=== PATIENT | female | born 1945 | race Caucasian/White ===

== ENCOUNTER → 2020-06-22 09:28 | Outpatient (BNVA) | payer MEDICARE, SELFPAY | PROVIDERS: PCP Internal Medicine; Visit Provider Internal Medicine | DX: I48.0 Paroxysmal atrial fibrillation (principal); I10 Essential (primary) hypertension; Z79.01 Long term (current) use of anticoagulants | CPT/HCPCS: 93005; 99212 ==

== ENCOUNTER → 2020-12-08 12:49 | Outpatient (BNVA) | payer MEDICARE, SELFPAY | PROVIDERS: PCP Internal Medicine; Visit Provider Internal Medicine | DX: I22.0 Subsequent ST elevation (STEMI) myocardial infarction of anterior wall (principal); I25.5 Ischemic cardiomyopathy; I48.0 Paroxysmal atrial fibrillation; I10 Essential (primary) hypertension; R19.7 Diarrhea, unspecified | CPT/HCPCS: 99212 ==

== ENCOUNTER → 2021-01-27 09:12 | Outpatient (REF) | payer MEDICARE, SELFPAY ==
--- NOTE | 2021-01-27 09:17 | CA_ITS ---
Transthoracic Echocardiogram Patient (Last, First, Middle): Cathryn Pa A Gender: Female Date of : 1945 Age: 75 Procedure Date: 01/27/2021 Procedure Type: Transthoracic Echocardiogram Location: OP Height: 167.64 cm Weight: 72.58 kg BSA: 1.82 m2 Heart Rate: bpm BP: 134 / 86 mmHg Insulation Cupola Operator: HENRY Referring MD: Petar Manley MD Cracker Sprayer: Jude Garcia MD Symptoms: I22.0 - Subsequent ST elevation (STEMI) myocardial infarc... Study Quality: Fair ECG Rhythm: Sinus Conclusions: - 1. Normal LV systolic function with pseudonormal filling pattern 2. Mild mitral and tricuspid regurgitation 3. Mildly to moderately elevated right ventricular systolic pressure 4. Small circumferential pericardial effusion Findings Left Ventricle Normal left ventricular size and systolic function. There is mildly increased left ventricular wall thickness. The visually estimated ejection fraction is between 55-60%. Spectral Doppler is indicative of a pseudonormal filling pattern. E/E prime ratio is between 8 and 15 consistent with indeterminate filling pressures. Right Ventricle Normal right ventricular cavity size and systolic function. Atria The left atrium is normal in size. There is no evidence of interatrial shunt. The right atrium is normal in size. Aortic Valve Normal aortic valve structure and function. There is no aortic valve stenosis. There is no aortic valve regurgitation. Mitral Valve Normal mitral valve structure and function. There is mild mitral valve regurgitation. There is no mitral valve stenosis. Pulmonic Valve The pulmonic valve is likely normal. Tricuspid Valve Likely normal tricuspid valve structure and function. There is mild tricuspid valve regurgitation. Mildly elevated right atrial pressure. Mild to moderate pulmonary hypertension is present. Great Vessels All visible segments of the aorta are normal in size. The pulmonary artery was not well visualized. Venous The inferior vena cava is normal in size and collapses less than 50% with inspiration. Pericardium/Pleural There is a small circumferential pericardial effusion. There are no definitive echocardiographic findings of tamponade physiology. Measurements 2D Linear Measurements IVSd: 1.27 0.6-0.9/0.6-1.0 cm LVIDd: 4.55 3.9-5.3/4.2-5.9 cm LVIDd Index: 2.50 2.4-3.2/2.2-3.1 cm/m2 LVIDs: 2.89 2.0-3.6 cm LVPWd: 1.19 0.7-1.1 cm Ao Root: 2.80 2.1-3.5 cm LA Diam: 3.30 2.7-3.8/3.0-4.0 cm LAIDs Index: 1.81 1.5-2.3 cm/m2 LV Mass: 260.29 67-162/88-224 g LV Mass Index: 143.01 43-95/49-115 g/m2 LVOT Diam: 2.00 3.0+(-)1.3 cm 2D Systolic Function EF 4C: 68.50 >55% Mitral Valve MV Pk E: 0.67 MV PK A: 0.67 MV Decel Time: 191.00 E/A: 1.00 E'Lateral: 5.87 E'Medial: 5.33 E/E' Med: 12.50 E/E' Lat: 11.40 PHT: 56.00 MVA PHT: 3.93 Decel [place]: 3.49 Aortic Valve AoV Pk Patrice: 1.36 AoV Pk Grad: 7.00 LVOT LVOT Pk Patrice: 1.06 LVOT Mn Patrice: 0.65 LVOT VTI: 0.22 LVOT Pk Grad: 4.00 LVOT Mn Grad: 2.00 LVOT Diam: 2.00 LVOT Area: 3.14 Diastolic Function MV Pk E: 0.67 MV Pk A: 0.67 E/A: 1.00 E'Medial: 5.33 E/E' Med: 12.50 E' Laterial: 5.87 E/E' Lat: 11.40 Right Ventricle TAPSE (mm): 2.57 Tricuspid Valve TR Pk Patrice: 3.09 TR Pk Grad: 38.00 RA Press: 8.00 RVSP: 46.00 Great Vessels Aorta Ao Root-2D: 2.80 2.0-3.7 cm Ao Asc: 3.00 2.1-3.4 cm Updated in Other Vendor System with Status of Final Jude Garcia MD electronically signed on 01/28/2021 11:22:22 AM with status of Final
== END ==
LOC: HO.CARD 09:12
PROVIDERS: Visit Provider Internal Medicine
DX: I22.0 Subsequent ST elevation (STEMI) myocardial infarction of anterior wall (principal)
CPT/HCPCS: 93306

== ENCOUNTER → 2021-02-01 12:48 | Outpatient (BNVA) | payer MEDICARE, SELFPAY | PROVIDERS: PCP Physician Assistant Medical; Referring Provider Physician Assistant Medical; Visit Provider Internal Medicine | DX: I22.0 Subsequent ST elevation (STEMI) myocardial infarction of anterior wall (principal); I25.5 Ischemic cardiomyopathy; I48.0 Paroxysmal atrial fibrillation; I10 Essential (primary) hypertension; Z79.01 Long term (current) use of anticoagulants; Z79.02 Long term (current) use of antithrombotics/antiplatelets; Z79.899 Other long term (current) drug therapy | CPT/HCPCS: 99212 ==

== ENCOUNTER → 2021-05-02 10:22 | Outpatient (BNVA) | payer MEDICARE, SELFPAY | PROVIDERS: PCP Physician Assistant Medical; Referring Provider Physician Assistant Medical; Visit Provider Internal Medicine | DX: I22.0 Subsequent ST elevation (STEMI) myocardial infarction of anterior wall (principal); I25.5 Ischemic cardiomyopathy; I48.0 Paroxysmal atrial fibrillation; I10 Essential (primary) hypertension; Z95.5 Presence of coronary angioplasty implant and graft; Z98.890 Other specified postprocedural states; Z79.01 Long term (current) use of anticoagulants | CPT/HCPCS: 99212 ==

== ENCOUNTER 2021-05-09 08:19 | Outpatient (REF) | payer MEDICARE, SELFPAY ==
[2021-05-09 12:07] LABS: Alanine Aminotransferase 43 U/L (0-31); Albumin Level 4.2 g/dL (3.5-5.0); Alkaline Phosphatase 60 U/L (39-117); Anion Gap 13 (12-20); Aspartate Amino Transferase 41 U/L (5-31); Bilirubin Direct 0.5 mg/dL (0.0-0.5); Bilirubin Total 1.2 mg/dL (0.0-1.0); Blood Urea Nitrogen 15 mg/dL (9-16); Calcium 9.5 mg/dL (8.4-10.2); Carbon Dioxide 25 mmol/L (22-29); Chloride 109 mmol/L (96-108); Cholesterol 125 mg/dL; Estimated Glomerular Filt Rate > 60; Glucose Random 113 mg/dL (60-115); HDL Cholesterol 49 mg/dL; LDL Cholesterol Calculated 53 mg/dl; Potassium 3.9 mmol/L (3.3-5.1); Sodium 143 mmol/L (135-145); Total Protein 6.4 g/dL (6.5-8.0); Triglycerides 118 mg/dL
== END 2021-05-09 08:20 | disposition home or self-care (01) ==
LOC: HO.HMGCLDS 08:19
PROVIDERS: PCP Physician Assistant Medical; Visit Provider Internal Medicine
DX: I22.0 Subsequent ST elevation (STEMI) myocardial infarction of anterior wall (principal); I25.10 Atherosclerotic heart disease of native coronary artery without angina pectoris; I25.5 Ischemic cardiomyopathy; E78.5 Hyperlipidemia, unspecified
CPT/HCPCS: 36415; 80048; 80061; 80076

== ENCOUNTER 2021-08-02 10:54 | Emergency (ER) | payer MEDICARE, SELFPAY ==
--- NOTE | ~2021-08-02 | US_ITS ---
EXAMINATION: US VENOUS ULTRASOUND WITH DOPPLER LOWER EXTREMITY, LEFT CLINICAL INFORMATION: Left leg swelling COMPARISON: None TECHNIQUE: Ultrasound of the deep veins is performed from the hip to the calf with compression sonography and color and pulse Doppler assessment. Spectral analysis with color-flow imaging is performed. FINDINGS: There is normal venous compression and respiratory variation and augmented flow. The visualized common femoral vein, superficial femoral vein, profunda femoral vein, popliteal vein, and the trifurcation region shows no evidence of deep venous thrombosis. There is no significant popliteal fossa cyst. No popliteal artery aneurysm. US/US venous duplex LE LT IMPRESSION: No acute DVT demonstrated in the left lower extremity.
--- NOTE | ~2021-08-02 | XR_ITS ---
EXAMINATION: XR CHEST CLINICAL INFORMATION: Shortness of breath COMPARISON: February 23, 2007 TECHNIQUE: AP portable view of the chest was obtained. FINDINGS: No significant abnormality is noted involving the heart, lungs, mediastinum, bony thorax or soft tissues. There is scoliosis of the upper thoracic spine convex left and lower thoracic spine convex right. XR/XR chest 1V IMPRESSION: No acute disease.
[2021-08-02 11:24] VITALS: BP 140/77; PULSE 65; RESP 18; TEMP 36.6; O2SAT 98; BMI 25.4
--- NOTE | 2021-08-02 12:19 | ED_ITS ---
HPI - General Adult General Chief complaint: General Medical Stated complaint: chf quest dvt l leg Time Seen by Provider: 08/02/21 11:59 Source: patient Limitations: no limitations History of Present Illness HPI narrative: This is a 75-year-old female who last month and had a aneurysmal brain hemorrhage. Patient has been doing well with recovery and saw her neurosurgeon yesterday. Patient has noted recent left leg swelling and her neurosurgeon wanted her to get an ultrasound done to rule out a blood clot. Patient reports pain to her left anterior knee. She denies any chest pain. She does feel short of breath with exertion. She is not sure if she is on a blood thinner anymore. She does have a history of ischemic cardiomyopathy and paroxysmal atrial fibrillation, as well as hypertension. She denies any cough or fever. Related Data Home Medications Medication Instructions Recorded Confirmed multivitamin 1 tab PO DAILY 06/22/20 05/02/21 clopidogrel 75 mg tablet 75 mg PO DAILY 12/08/20 05/02/21 lorazepam 1 mg tablet 1 mg PO DAILY PRN 12/08/20 05/02/21 Previous Rx's Medication Instructions Recorded atorvastatin 80 mg tablet 80 mg PO DAILY 90 Days #90 tab 02/01/21 losartan 50 mg tablet 100 mg PO DAILY 90 Days #180 tab 02/01/21 metoprolol succinate 25 mg 25 mg PO BEDTIME 90 Days #90 tab 02/01/21 tablet,extended release 24 hr amlodipine 5 mg tablet (Norvasc) 5 mg PO DAILY 90 Days #90 tab 02/15/21 rivaroxaban 20 mg tablet (Xarelto) 20 mg PO DAILY #90 tab 04/10/21 Allergies Allergy/AdvReac Type Severity Reaction Status Date / Time lisinopril [From AdvReac Intermediate COUGH Verified 08/02/21 11:30 ZESTRIL] Review of Systems Verdana 4l Constitutional: Verdana 4d Constitutional: Verdana 4d Verdana 4d Reports as per HPI and Denies fever(s) Verdana 4l Eyes: Verdana 4d Verdana 4d Eyes: Verdana 4d Reports no additional eye complaints Verdana 4l ENT: Verdana 4d Reports system reviewed and no additional complaints, except as documented Verdana 4l Cardiovascular: Verdana 4d Cardiovascular: Verdana 4d Verdana 4d Denies chest pain and Reports dyspnea Verdana 4l Respiratory: Verdana 4d Verdana 4d Respiratory: Verdana 4d Reports dyspnea Verdana 4l Gastrointestinal: Verdana 4d Gastrointestinal: Verdana 4d Verdana 4d Reports no additional gastrointestinal complaints Verdana 4l Musculoskeletal: Verdana 4d Comments: Verdana 4d Verdana 4d Verdana 4d Left leg swelling Verdana 4d Verdana 4l Integumentary/Breasts: Verdana 4d Skin/Breast: Verdana 4d Verdana 4d Reports system reviewed and no additional complaints, except as docu Verdana 4l Neurologic: Verdana 4d Reports system reviewed and no additional complaints, except as documented and Denies Sensory deficit (Neuro) [facility] Past Medical History Medical History (Updated 08/02/21 @ 14:03 by Bert Rg MD) 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 Essential hypertension Heart attack intermediate (current) use of anticoagulants PAF (paroxysmal atrial fibrillation) Surgical History (Updated 08/02/21 @ 11:30 by Nai Erwin) H/O heart artery stent History of cardiac catheterization (~11/29/20) History of total left knee replacement (~2018) Family History Family History Father Myocardial infarction Mother HTN (hypertension) Social History Social History Alcohol intake: never Patient Tobacco Use Status: Never used Tobacco Smoked in Last 30 Days: No Use of substances other than those prescribed or required for medical reasons: No Advance Directives: No Advance Directives Information Provided: No Physical Exam Verdana 4l Vital Signs: Verdana 4d Verdana 4d Vital Signs: Verdana 4d Verdana 4Bd Last Vital Signs Verdana 4d Seo Consultant New 4d Seo Consultant New 4d Temp 97.7 F 08/02/21 13:00 Seo Consultant New 4d Pulse 64 08/02/21 13:00 Seo Consultant New 4d Resp 15 08/02/21 13:00 BP 137/70 08/02/21 13:00 Pulse Ox 99 08/02/21 13:00 BMI result Body Mass Index 25.4 Const: General: cooperative, no acute distress and alert Orientation/consciousness: patient oriented x3 HENMT: Head: Yes normal to inspection Eyes: General: appearance normal, both eyes and all related structures Eyelids: Yes eyelids normal Conjunctivae: conjunctivae normal Pupils: Equal, round and reactive pupils present Neck: Neck: Yes normal visual inspection and Yes supple Chest: Chest palpation & inspection: normal inspection of the chest Resp: Effort & Inspection: normal respiratory effort Auscultation: clear to auscultation bilaterally Cardio: Rate: regular rate Rhythm: regular rhythm Heart sounds: S1 normal heart sound present, S2 normal heart sound present, no gallops, no murmurs and no rubs GI: Palpation (GI): Soft to palpation, nontender and Other GI palpation findings present (Non-distended) Auscultation: normal bowel sounds Skin: General skin exam: no rashes or lesions noted Neuro: General: patient oriented x3, no focal motor deficits and CN's II-XI intact bilaterally Cranial nerves: Yes Equal, round and reactive pupils present Cognition (Neuro): normal cognition Motor exam (neuro): 5/5 motor strength present throughout Sensory Exam: No Sensory deficit (Neuro) Extrem: Other: No left calf swelling compared to right, no fullness that to the popliteal fossa, no cords palpable in the posterior leg or medial thigh, no redness or tenderness. No joint effusion of the left knee. No pitting edema to either of the legs. Calves appear equal in size. General: Yes normal to inspection and Yes no pedal edema Psych: Appearance: grossly normal Affect: normal affect Medical Decision Making MDM Narrative Medical decision making narrative: Patient with complaint of pain in her left knee radiate up to her left groin at times. Patient was sent in for evaluation to rule out DVT. Clinically I had little suspicion for DVT because there was no asymmetry to the calf, no calf fullness or tenderness, no popliteal fullness or tenderness, no medial thigh cords or tenderness. There is no pitting edema on either leg or foot. The patient later revealed that her physician had water also have a chest x-ray and BNP. Chest x-ray was done despite the fact that the patient has clear lungs and a pulse oximetry of 99% no peripheral edema. This was negative. BNP will not be contributory given the overall clinical picture. Patient reports no increasing shortness of breath with lying down flat and in fact was reclining nearly flat during her whole ED stay. Imaging Data Left leg venous ultrasound: Radiologist's impression: MPRESSION: No acute DVT demonstrated in the left lower extremity. Chest x-ray: Radiologist's impression: FINDINGS: No significant abnormality is noted involving the heart, lungs, mediastinum, bony thorax or soft tissues. There is scoliosis of the upper thoracic spine convex left and lower thoracic spine convex right. XR/XR chest 1V IMPRESSION: No acute disease. Discharge Plan Discharge Clinical Impression: Pain in left leg Patient Disposition: Home, Self-Care Instructions: Leg Pain (ED) Additional Instructions: Continue current medications. Use acetaminophen (Tylenol) for pain. Your ultra sound was negative for evidence of a blood clot, and clinically I did not suspect the you had a blood clot based upon her exam. You had no pitting peripheral edema and her lungs are clear, your oxygen saturation was 99% on room air which is perfect, and her chest x-ray showed no concerning findings. I do not believe you have congestive heart failure, BNP blood test would not guide changer. Follow up with your primary care physician Prescriptions: No Action amlodipine [Norvasc] 5 mg tablet 5 mg PO DAILY 90 Days Qty: 90 3RF Xarelto 20 mg tablet 20 mg PO DAILY Qty: 90 3RF multivitamin Tablet 1 tab PO DAILY 0RF clopidogrel 75 mg tablet 75 mg PO DAILY 0RF lorazepam 1 mg tablet 1 mg PO DAILY PRN0RF metoprolol succinate 25 mg tablet extended release 24 hr 25 mg PO BEDTIME 90 Days Qty: 90 3RF atorvastatin 80 mg tablet 80 mg PO DAILY 90 Days Qty: 90 3RF losartan 50 mg tablet 100 mg PO DAILY 90 Days Qty: 180 4RF
[2021-08-02 13:00] VITALS: BP 137/70; PULSE 64; RESP 15; TEMP 36.5; O2SAT 99
== END 2021-08-02 14:45 | disposition home or self-care (01) ==
PROVIDERS: Emergency Provider Emergency Medicine; PCP Physician Assistant Medical
DX: M79.605 Pain in left leg (principal); R06.02 Shortness of breath; I10 Essential (primary) hypertension; I48.0 Paroxysmal atrial fibrillation; Z79.01 Long term (current) use of anticoagulants; Z79.02 Long term (current) use of antithrombotics/antiplatelets
CPT/HCPCS: 71045; 93971; 99284

== ENCOUNTER → 2021-08-08 14:48 | Outpatient (BNVA) | payer MEDICARE, SELFPAY | PROVIDERS: PCP Physician Assistant Medical; Referring Provider Physician Assistant Medical; Visit Provider Internal Medicine | DX: I48.0 Paroxysmal atrial fibrillation (principal); I62.00 Nontraumatic subdural hemorrhage, unspecified; I25.5 Ischemic cardiomyopathy; I10 Essential (primary) hypertension; I25.2 Old myocardial infarction; Z79.02 Long term (current) use of antithrombotics/antiplatelets; Z79.899 Other long term (current) drug therapy | CPT/HCPCS: 93005; 99212 ==

== ENCOUNTER → 2021-08-09 09:21 | Outpatient (REF) | payer MEDICARE, SELFPAY ==
--- NOTE | 2021-08-09 09:38 | CA_ITS ---
Transthoracic Echocardiogram Patient (Last, First, Middle): Cathryn Pa A Gender: Female Date of : 1945 Age: 75 Procedure Date: 08/09/2021 Procedure Type: Transthoracic Echocardiogram Location: OP Height: 165.1 cm Weight: 69.4 kg BSA: 1.77 m2 Heart Rate: bpm BP: 122 / 68 mmHg Director Of Group Counseling Program: Referring MD: Petar Manley MD Symptoms: I25.5 - Ischemic cardiomyopathy Study Quality: Fair ECG Rhythm: Sinus Conclusions: - The left ventricular systolic function is normal. The calculated ejection fraction is 67% by biplane method. - No obvious valvular pathology seen on this study. Findings Left Ventricle Normal left ventricular cavity size. There is normal left ventricular wall thickness. The left ventricular systolic function is normal. The calculated ejection fraction is 67% by biplane method. There is no evidence of regional wall motion abnormalities. E/E prime ratio is <8, consistent with normal filling pressures. Evidence suggests grade I (mild) diastolic dysfunction. Right Ventricle Normal right ventricular cavity size and systolic function. Atria Both atria are normal in size. Aortic Valve There is a normal trileaflet aortic valve. There is no aortic valve stenosis. There is no aortic valve regurgitation. Mitral Valve The mitral valve appears normal. There is trace mitral valve regurgitation. There is no mitral valve stenosis. Pulmonic Valve The pulmonic valve was not well visualized. Tricuspid Valve Normal tricuspid valve structure. There is mild tricuspid valve regurgitation. The pulmonary artery systolic pressure is normal. Great Vessels The aortic annulus, sinuses of valsalva, and asc aorta are normal in size. Venous The inferior vena cava is normal in size and collapses greater than 50% with inspiration. Pericardium/Pleural There is a trivial pericardial effusion. Prior Study Comparison Changes noted compared to prior study dated: 01/27/2021. Improved RVSP. Recommendations, Care & Conclusions No obvious valvular pathology seen on this study. Measurements 2D Linear Measurements IVSd: 0.83 0.6-0.9/0.6-1.0 cm LVIDd: 5.13 3.9-5.3/4.2-5.9 cm LVIDd Index: 2.90 2.4-3.2/2.2-3.1 cm/m2 LVIDs: 2.74 2.0-3.6 cm LVPWd: 0.85 0.7-1.1 cm Ao Root: 3.10 2.1-3.5 cm LA Diam: 2.90 2.7-3.8/3.0-4.0 cm LAIDs Index: 1.64 1.5-2.3 cm/m2 LV Mass: 187.18 67-162/88-224 g LV Mass Index: 105.75 43-95/49-115 g/m2 LVOT Diam: 1.90 3.0+(-)1.3 cm 2D Systolic Function EF 4C: 68.00 >55% EF 2C: 66.80 >55% EF BiP: 66.70 >55% Mitral Valve MV Pk E: 0.50 MV PK A: 0.88 MV Decel Time: 425.00 E/A: 0.60 E'Lateral: 8.16 E'Medial: 5.11 E/E' Med: 9.70 E/E' Lat: 6.10 PHT: 124.00 MVA PHT: 1.77 Decel [place]: 1.17 Aortic Valve AoV Pk Patrice: 1.45 AoV Mn Patrice: 0.98 AoV VTI: 0.37 AoV Pk Grad: 8.00 Aov Mn Grad: 4.00 SHANA Cont.VTI: 1.74 LVOT LVOT Pk Patrice: 0.96 LVOT Mn Patrice: 0.60 LVOT VTI: 0.23 LVOT Pk Grad: 4.00 LVOT Mn Grad: 2.00 LVOT Diam: 1.90 LVOT Area: 2.84 Diastolic Function MV Pk E: 0.50 MV Pk A: 0.88 E/A: 0.60 E'Medial: 5.11 E/E' Med: 9.70 E' Laterial: 8.16 E/E' Lat: 6.10 Right Ventricle TAPSE (mm): 22.00 Tricuspid Valve TR Pk Patrice: 2.24 TR Pk Grad: 20.00 Great Vessels Aorta Ao Root-2D: 3.10 2.0-3.7 cm Ao Asc: 3.00 2.1-3.4 cm Pulmonary Valve PV Pk Patrice: 1.11 Peak PV Grad: 5.00 Updated in Other Vendor System with Status of Final Petar Manley MD electronically signed on 08/11/2021 12:40:13 PM with status of Final
== END ==
LOC: HO.CARD 09:21
PROVIDERS: Visit Provider Internal Medicine
DX: I25.5 Ischemic cardiomyopathy (principal)
CPT/HCPCS: 93306

== ENCOUNTER 2021-08-22 08:04 | Outpatient (REF) | payer MEDICARE, SELFPAY ==
[2021-08-22 11:57] LABS: Alanine Aminotransferase 28 U/L (0-31); Alkaline Phosphatase 64 U/L (39-117); Aspartate Amino Transferase 27 U/L (5-31); Bilirubin Direct 0.3 mg/dL (0.0-0.5); Bilirubin Total 0.7 mg/dL (0.0-1.0); Total Protein 6.9 g/dL (6.5-8.0)
== END 2021-08-22 08:05 | disposition home or self-care (01) ==
LOC: HO.HMGCLDS 08:04
PROVIDERS: PCP Internal Medicine; Visit Provider Internal Medicine
DX: I22.0 Subsequent ST elevation (STEMI) myocardial infarction of anterior wall (principal)
CPT/HCPCS: 36415; 80076

== ENCOUNTER → 2021-08-29 13:39 | Outpatient (BNVA) | payer MEDICARE, SELFPAY | PROVIDERS: PCP Internal Medicine; Referring Provider Internal Medicine; Visit Provider Internal Medicine | DX: I48.0 Paroxysmal atrial fibrillation (principal); I62.00 Nontraumatic subdural hemorrhage, unspecified; I25.5 Ischemic cardiomyopathy; I10 Essential (primary) hypertension; I25.2 Old myocardial infarction | CPT/HCPCS: 99212 ==

== ENCOUNTER → 2021-11-28 14:15 | Outpatient (BNVA) | payer MEDICARE, SELFPAY | PROVIDERS: PCP Internal Medicine; Referring Provider Internal Medicine; Visit Provider Internal Medicine | DX: I48.0 Paroxysmal atrial fibrillation (principal); I62.00 Nontraumatic subdural hemorrhage, unspecified; I22.0 Subsequent ST elevation (STEMI) myocardial infarction of anterior wall; I25.5 Ischemic cardiomyopathy; I10 Essential (primary) hypertension | CPT/HCPCS: 99212 ==

== ENCOUNTER 2022-02-28 08:14 | Outpatient (REF) | payer MEDICARE, SELFPAY ==
[2022-02-28 11:16] LABS: MANUAL DIFF FLAG NO
[2022-02-28 11:25] LABS: Basophils Absolute Auto 0.1 X10*3/uL (0.0-0.2); Basophils Percent Auto 1.3 % (0-2); Eosinophils Absolute Auto 0.2 X10*3/uL (0.0-0.4); Eosinophils Percent Auto 3.8 % (0-4); Hematocrit 40.3 % (37.0-47.0); Hemoglobin 13.4 g/dl (12.0-16.0); Imm Gran Abs Auto 0.01 X10*3/uL (0.00-0.03); Imm Gran Pct Auto 0.2 % (0.0-0.4); Lymphocytes Absolute Auto 1.6 X10*3/uL (1.2-4.9); Lymphocytes Percent Auto 29.1 % (20-40); Mean Corpuscular HGB Conc 33.3 g/dl (31.0-35.0); Mean Corpuscular Hemoglobin 32.5 pg (27.0-33.0); Mean Corpuscular Volume 97.8 fL (80.0-98.0); Mean Platelet Volume 11.1 fL (9.4-12.3); Monocytes Absolute Auto 0.6 X10*3/uL (0.1-1.2); Monocytes Percent Auto 11.1 % (2-11); Neutrophils Percent Auto 54.5 % (45-73); Platelet Count 199 X10*3/uL (160-400); Red Blood Count 4.12 X10*6/uL (4.20-5.50); Red Cell Distribution Width 12.2 % (11.0-16.0); White Blood Count 5.6 X10*3/uL (4.8-10.8)
[2022-02-28 12:17] LABS: Alanine Aminotransferase 23 U/L (0-31); Albumin Level 4.2 g/dL (3.5-5.0); Alkaline Phosphatase 58 U/L (39-117); Anion Gap 14 (12-20); Aspartate Amino Transferase 27 U/L (5-31); Bilirubin Total 0.8 mg/dL (0.0-1.0); Blood Urea Nitrogen 17 mg/dL (9-16); Calcium 9.7 mg/dL (8.4-10.2); Carbon Dioxide 25 mmol/L (22-29); Chloride 108 mmol/L (96-108); Cholesterol 133 mg/dL; Estimated Glomerular Filt Rate > 60; Glucose Fasting 103 mg/dL (60-99); HDL Cholesterol 64 mg/dL; LDL Cholesterol Calculated 47 mg/dl; Potassium 4.1 mmol/L (3.3-5.1); Sodium 143 mmol/L (135-145); Total Protein 6.7 g/dL (6.5-8.0); Triglycerides 110 mg/dL
[2022-02-28 12:21] LABS: TSH reflex Free T4 1.04 uIU/mL (0.32-4.0)
[2022-02-28 14:10] LABS: Appearance Urine Clear; Color Urine Dark Yellow; Glucose Urine UA Negative (Negative); Leukocyte Esterase Urine Moderate (2+) (Negative); Nitrite Urine Negative (Negative); PH 5.5 (5.0-8.0); Specific Gravity - Urine 1.025 (1.005-1.025); Urine Blood Negative (Negative); Urine Ketones Trace mg/dL (Negative); Urine Protein Negative (Neg-Trace)
[2022-02-28 14:27] LABS: Bacteria Urine None Seen (None Seen); Calcium Oxalate Crystals Urine Present; Hyaline Casts Urine 0-2 /LPF (0-2); RBC Urine 0-2 /HPF (0-2); Squamous Epithelial Cell Urine 0-2 /HPF (0-2); UACC Culture Trigger YES
== END 2022-02-28 08:15 | disposition home or self-care (01) ==
LOC: HO.HMGCLDS 08:14
PROVIDERS: PCP Internal Medicine; Visit Provider Internal Medicine
DX: E78.00 Pure hypercholesterolemia, unspecified (principal); I10 Essential (primary) hypertension; E55.9 Vitamin D deficiency, unspecified; I48.0 Paroxysmal atrial fibrillation
CPT/HCPCS: 36415; 80053; 80061; 81001; 82306; 84443; 85025; 87086

== ENCOUNTER → 2022-03-13 10:21 | Outpatient (BNVA) | payer MEDICARE, SELFPAY | PROVIDERS: PCP Internal Medicine; Referring Provider Internal Medicine; Visit Provider Internal Medicine | DX: I48.0 Paroxysmal atrial fibrillation (principal); I25.5 Ischemic cardiomyopathy; I10 Essential (primary) hypertension; I25.2 Old myocardial infarction; Z79.82 Long term (current) use of aspirin; Z79.899 Other long term (current) drug therapy; Z95.818 Presence of other cardiac implants and grafts | CPT/HCPCS: 99212 ==

== ENCOUNTER 2022-05-29 08:32 | Outpatient (REF) | payer MEDICARE, SELFPAY ==
[2022-05-29 11:29] LABS: Appearance Urine Clear; Color Urine Yellow; Glucose Urine UA Negative (Negative); Leukocyte Esterase Urine Trace (Negative); Nitrite Urine Negative (Negative); UMIC TRIGGER UACC YES; Urine Blood Negative (Negative); Urine Ketones Negative (Negative); Urine Protein Negative (Neg-Trace)
[2022-05-29 11:36] LABS: Bacteria Urine None Seen (None Seen); Hyaline Casts Urine 0-2 /LPF (0-2); RBC Urine 0-2 /HPF (0-2); Squamous Epithelial Cell Urine 0-2 /HPF (0-2); WBC Urine 0-5 /HPF (0-5)
[2022-05-29 11:38] LABS: MANUAL DIFF FLAG NO
[2022-05-29 12:17] LABS: Basophils Absolute Auto 0.1 X10*3/uL (0.0-0.2); Eosinophils Absolute Auto 0.3 X10*3/uL (0.0-0.4); Eosinophils Percent Auto 4.4 % (0-4); Hematocrit 40.6 % (37.0-47.0); Hemoglobin 13.3 g/dl (12.0-16.0); Imm Gran Abs Auto 0.02 X10*3/uL (0.00-0.03); Imm Gran Pct Auto 0.3 % (0.0-0.4); Lymphocytes Absolute Auto 1.7 X10*3/uL (1.2-4.9); Lymphocytes Percent Auto 27.9 % (20-40); Mean Corpuscular HGB Conc 32.8 g/dl (31.0-35.0); Mean Corpuscular Hemoglobin 31.8 pg (27.0-33.0); Mean Corpuscular Volume 97.1 fL (80.0-98.0); Mean Platelet Volume 10.5 fL (9.4-12.3); Monocytes Absolute Auto 0.6 X10*3/uL (0.1-1.2); Monocytes Percent Auto 9.7 % (2-11); Neutrophils Absolute Auto 3.5 x10*3/uL (2.0-8.3); Neutrophils Percent Auto 56.7 % (45-73); Platelet Count 208 X10*3/uL (160-400); Red Blood Count 4.18 X10*6/uL (4.20-5.50); Red Cell Distribution Width 13.1 % (11.0-16.0); White Blood Count 6.2 X10*3/uL (4.8-10.8)
[2022-05-29 13:13] LABS: Alanine Aminotransferase 27 U/L (0-31); Albumin Level 4.1 g/dL (3.5-5.0); Alkaline Phosphatase 69 U/L (39-117); Anion Gap 13 (12-20); Aspartate Amino Transferase 28 U/L (5-31); Bilirubin Total 0.7 mg/dL (0.0-1.0); Blood Urea Nitrogen 16 mg/dL (9-16); Calcium 9.9 mg/dL (8.4-10.2); Carbon Dioxide 27 mmol/L (22-29); Chloride 108 mmol/L (96-108); Cholesterol 128 mg/dL; Estimated Glomerular Filt Rate > 60; Glucose Fasting 103 mg/dL (60-99); HDL Cholesterol 53 mg/dL; LDL Cholesterol Calculated 50 mg/dl; Potassium 4.7 mmol/L (3.3-5.1); Sodium 143 mmol/L (135-145); TSH reflex Free T4 2.11 uIU/mL (0.32-4.0); Total Protein 6.6 g/dL (6.5-8.0); Triglycerides 128 mg/dL; Vitamin D 25-OH Total 41.9 ng/mL (>30)
== END 2022-05-29 08:33 | disposition home or self-care (01) ==
LOC: HO.HMGCLDS 08:32
PROVIDERS: PCP Internal Medicine; Visit Provider Internal Medicine
DX: E78.00 Pure hypercholesterolemia, unspecified (principal); E55.9 Vitamin D deficiency, unspecified; I10 Essential (primary) hypertension
CPT/HCPCS: 36415; 80053; 80061; 81001; 82306; 84443; 85025

== ENCOUNTER → 2022-09-17 09:44 | Outpatient (BNVA) | payer MEDICARE, SELFPAY | PROVIDERS: PCP Internal Medicine; Referring Provider Internal Medicine; Visit Provider Internal Medicine | DX: I48.0 Paroxysmal atrial fibrillation (principal); I22.0 Subsequent ST elevation (STEMI) myocardial infarction of anterior wall; I25.5 Ischemic cardiomyopathy; I10 Essential (primary) hypertension; I62.00 Nontraumatic subdural hemorrhage, unspecified; Z95.818 Presence of other cardiac implants and grafts | CPT/HCPCS: 93005; 99212 ==

== ENCOUNTER 2022-10-01 08:03 | Outpatient (REF) | payer MEDICARE, SELFPAY ==
[2022-10-01 11:23] LABS: Appearance Urine Clear; Color Urine Yellow; Glucose Urine UA Negative (Negative); Leukocyte Esterase Urine Small (1+) (Negative); Nitrite Urine Negative (Negative); Specific Gravity - Urine 1.015 (1.005-1.025); UMIC TRIGGER UACC YES; Urine Blood Negative (Negative); Urine Ketones Negative (Negative); Urine Protein Negative (Neg-Trace)
[2022-10-01 11:27] LABS: MANUAL DIFF FLAG NO
[2022-10-01 11:33] LABS: Bacteria Urine None Seen (None Seen); Hyaline Casts Urine 0-2 /LPF (0-2); RBC Urine 0-2 /HPF (0-2); Squamous Epithelial Cell Urine 0-2 /HPF (0-2); UACC Culture Trigger YES; WBC Urine 0-5 /HPF (0-5)
[2022-10-01 11:37] LABS: Basophils Percent Auto 0.7 % (0-2); Eosinophils Absolute Auto 0.2 X10*3/uL (0.0-0.4); Hematocrit 42.1 % (37.0-47.0); Hemoglobin 14.2 g/dl (12.0-16.0); Imm Gran Abs Auto 0.01 X10*3/uL (0.00-0.03); Imm Gran Pct Auto 0.2 % (0.0-0.4); Lymphocytes Absolute Auto 1.8 X10*3/uL (1.2-4.9); Lymphocytes Percent Auto 32.7 % (20-40); Mean Corpuscular HGB Conc 33.7 g/dl (31.0-35.0); Mean Corpuscular Volume 94.8 fL (80.0-98.0); Mean Platelet Volume 11.4 fL (9.4-12.3); Monocytes Absolute Auto 0.6 X10*3/uL (0.1-1.2); Neutrophils Absolute Auto 2.9 x10*3/uL (2.0-8.3); Neutrophils Percent Auto 51.4 % (45-73); Platelet Count 186 X10*3/uL (160-400); Red Blood Count 4.44 X10*6/uL (4.20-5.50); Red Cell Distribution Width 13.2 % (11.0-16.0); White Blood Count 5.5 X10*3/uL (4.8-10.8)
[2022-10-01 12:08] LABS: Alanine Aminotransferase 35 U/L (0-31); Albumin Level 4.1 g/dL (3.5-5.0); Alkaline Phosphatase 77 U/L (39-117); Anion Gap 13 (12-20); Aspartate Amino Transferase 42 U/L (5-31); Bilirubin Total 1.2 mg/dL (0.0-1.0); Blood Urea Nitrogen 17 mg/dL (9-16); Calcium 9.7 mg/dL (8.4-10.2); Carbon Dioxide 27 mmol/L (22-29); Chloride 108 mmol/L (96-108); Cholesterol 139 mg/dL; Estimated Glomerular Filt Rate > 60; Glucose Fasting 101 mg/dL (60-99); HDL Cholesterol 61 mg/dL; LDL Cholesterol Calculated 57 mg/dl; Potassium 4.5 mmol/L (3.3-5.1); Sodium 143 mmol/L (135-145); Total Protein 6.4 g/dL (6.5-8.0); Triglycerides 106 mg/dL
[2022-10-01 12:13] LABS: Vitamin D 25-OH Total 41.4 ng/mL (>30)
== END 2022-10-01 08:04 | disposition home or self-care (01) ==
LOC: HO.HMGCLDS 08:03
PROVIDERS: PCP Internal Medicine; Visit Provider Internal Medicine
DX: I10 Essential (primary) hypertension (principal); E55.9 Vitamin D deficiency, unspecified; E78.00 Pure hypercholesterolemia, unspecified; R82.90 Unspecified abnormal findings in urine
CPT/HCPCS: 36415; 80053; 80061; 81001; 82306; 84443; 85025; 87086

== ENCOUNTER 2022-10-18 10:20 | Outpatient (REF) | payer MEDICARE, SELFPAY ==
--- NOTE | ~2022-10-18 | MM_ITS ---
EXAMINATION: BONE DENSITOMETRY CLINICAL INDICATION: Menopause. COMPARISON: None (current study represents initial baseline exam). TECHNIQUE: Using a transOMIC DXA System (software version: 13.1) manufactured by [employer], dual-energy x-ray absorptiometry was performed of the lumbar spine, left hip, and left forearm radius 33%. The images are of good technical quality. Summary results are attached. FINDINGS: AP SPINE L1-L2 (excluding L3 and L4): The data of L1-L4 has been changed to exclude the L3 and L4 vertebral bodies, because degenerative changes at these levels may cause overestimation of lumbar spine density. BMD 1.096 g/cm2, Z-score 0.9, T-score -0.6, normal. LEFT FEMUR, NECK: BMD 0.735 g/cm2, Z-score -0.4, T-score -2.2, osteopenia. LEFT FEMUR, TOTAL: BMD 0.817 g/cm2, Z-score 0.1, T-score -1.5, osteopenia. LEFT FOREARM RADIUS 33%: BMD 0.758 g/cm2, Z-score 1.0, T-score -1.3, osteopenia. IDENTIFIED RISK FACTORS: Early menopause, height loss, low calcium intake, secondary osteoporosis. HISTORY OF FRACTURE: None listed. MEDICATIONS: Multivitamin. MM/XR DEXA axial skeleton IMPRESSION: 1. DIAGNOSIS: Osteopenia based on the lowest T-score value of -2.2 in the femoral neck applying World Health Organization criteria. 2. 10-YEAR FRACTURE RISK PREDICTION, FRAX: Major osteoporotic fracture (clinical spine, forearm, hip or shoulder) 15.1%. Hip fracture 4.3%. 3. Treatment Recommendations: NOF guidelines recommend consideration for treatment in postmenopausal women and men age 50 and older presenting with the following: -A hip or vertebral (clinical or morphometric) fracture. -T-score less than or equal to -2.5 at the femoral neck or spine after appropriate evaluation to exclude secondary causes. -Low bone mass at the hip or spine and a 10-year fracture probability by FRAX of greater than or equal to 3% for hip fracture or greater than or equal to 20% for major osteoporotic fracture based on the [place] adapted WHO algorithm. 4. Other Recommendations: All treatment decisions require clinical judgment and consideration of individual patient factors, including patient preferences, comorbidities, previous drug use, risk factors not captured in the FRAX model (e.g. frailty, falls, vitamin D deficiency, increased bone turnover, interval significant decline in bone density) and possible under or overestimation of fracture risk by FRAX. Additional medical evaluation for secondary cause of low bone mineral density may be appropriate. FUTURE SCAN RECOMMENDATION: People with diagnosed cases of osteoporosis or at high risk for fracture should have regular bone mineral density tests. For patients eligible for Medicare, routine testing is allowed once every 2 years. The testing frequency can be increased to one year for patients who have rapidly progressing disease, those who are receiving or discontinuing medical therapy to restore bone mass, or have additional risk factors.
== END 2022-10-18 10:21 | disposition home or self-care (01) ==
LOC: HO.MAMMO 10:20
PROVIDERS: Visit Provider Internal Medicine
DX: Z13.820 Encounter for screening for osteoporosis (principal); Z78.0 Asymptomatic menopausal state
CPT/HCPCS: 77080

== ENCOUNTER 2023-02-25 10:41 | Outpatient (AMB) | payer MEDICARE, SELFPAY ==
[2023-02-25 10:44] VITALS: BP 140/92; PULSE 79; O2SAT 98; BMI 26.8
--- NOTE | 2023-02-25 10:44 | MHC.PC.OV ---
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 Accompanied by: Self / Same As Patient Allergies lisinopril [From ZESTRIL] Adverse Reaction (Intermediate, Verified 07/02/23 10:56) COUGH Medication List - Last Reconciled 02/25/23 by Jay Vasquez MD amlodipine 5 mg PO DAILY 90 days aspirin (Adult Low Dose Aspirin) 81 mg PO DAILY atorvastatin 80 mg PO DAILY 90 days lorazepam 1 mg PO DAILY PRN 30 days losartan 100 mg (2 x 50 mg) PO DAILY metoprolol succinate ER 25 mg PO BEDTIME multivitamin 1 tab PO DAILY Tobacco use date assessed: 02/25/23 Fall risk assessment: No Falls in past year Last assessed Fall Risk: 02/25/23 Dental Screening Dental Screen Date: 02/25/23 Did you have a dental visit in the last 12 months?: Yes Did you have a dental problem in the last 6 months where you did not have access to dental care?: No Was dental information given to patient?: Patient has dentist HPI 4 month f/u HPI Details Patient comes in today for her follow up visit States that she has been having problems with her right knee for the past few weeks Recalls that she started experiencing some discomfort in her right knee, especially over the back of the knee, a few weeks ago just before she was about to go on her trip (vacation) Relates that she went snorkeling at one point and her knee pain increased significantly since to a point where she could not walk and had to be brought back to her hotel in a wheelchair then Went to see orthopedics at [facility] (Dr. Blaze Oswald) for her right knee when she got back and ended up getting an MRI of the knee done - was reportedly told that she has a fracture in her tibia as well as some meniscal injury based on the MRI findings but she would not require any surgery at the time States that she has a follow up appointment coming up with orthopedics in a couple of weeks Feels that she has gained weight lately and also has been experiencing some diffuse muscle and joint pains as well as some SOB Is concerned that her symptoms may be due to (side effects) her Atorvastatin and states that she is thinking about checking back with Dr. Manley about this soon Has also noticed increased swelling of her ankles and feet often lately and is wondering if this is from her Amlodipine or could be a symptoms of some other problem(s) She denies any headaches or dizziness lately Denies any exertional chest pains No nausea/vomiting, no abdominal pain and no change in bowel habits noted Would like to know how her BMD done a few months ago came out She was not able to get her follow up labs done recently - states that she was not aware she had to get some labs done for this appt. 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 Essential hypertension PAF (paroxysmal atrial fibrillation) Surgical History S/P craniotomy (~06/2021) History of cardiac catheterization (~11/29/20) History of total left knee replacement (~2018) Family History Father Myocardial infarction Mother HTN (hypertension) Social History Housing: House Alcohol intake: current Alcohol intake frequency: holidays/special occasions only Patient Tobacco Use Status: Never used Tobacco e-Cigarette/Vaping Use: Never Used Second Hand Smoke Exposure: No service: No Current occupational status: retired Cognitive needs: No Hearing needs: Yes Vision needs: Yes Questionnaire PHQ-9 Over the last 2 weeks, how often have you been bothered by any of the following problems? 1. Little interest or pleasure in doing things: not at all 2. Feeling down, depressed, or hopeless: not at all 3. Trouble falling or staying asleep, or sleeping too much: not at all 4. Feeling tired or having little energy: not at all 5. Poor appetite or overeating: not at all 6. Feeling bad about yourself - or that you are a failure or have let yourself or your family down: not at all 7. Trouble concentrating on things, such as reading the newspaper or watching television: not at all 8. Moving or speaking so slowly that other people could have noticed. Or the opposite - being so fidgety or restless that you have been moving around a lot more than usual: not at all 9. Thoughts that you would be better off or of hurting yourself in some way: not at all Total score: 0 Depression Screening Interpretation: Negative [id number] - PHQ-9 Billing: Yes Source: Developed by Drs. Blaze Tariq, Concetta De Jesus, Ernesto Garber and colleagues, with an educational regla from [employer]. Thrive Questionnaire Date Thrive assessed: 02/25/23 I am a: Patient What is your living situation today?: I have a steady place to live Within the past 12 months, did the food you bought not last and you didn't have the money to get more?: Never true Within the past 12 months, did you worry whether your food would run out before you got money to buy more?: Never true Do you have trouble paying for medicines?: No Do you have trouble getting transportation to medical appointments?: No Do you have trouble paying your heating and electricity bill?: No Do you have trouble taking care of your child, family member or friend?: No Do you have trouble with day-to-day activities such as bathing, preparing meals, shopping, managing finances, etc.?: No Are you currently unemployed and looking for a job?: No Are you interested in more education?: No Please select the resources that you would like help with: None Currently or been in a relationship where the following occur: no concerns reported AUDIT C Alcohol Use Questionnaire (AUDIT-C) 1. How often do you have a drink containing alcohol?: Monthly or less 2. How many drinks containing alcohol do you have on a typical day when you are drinking?: 1 or 2 3. How often do you have six or more drinks on one occasion?: Never Total Score: 1 Score Reviewed/Action Taken: Yes MAXIMILIAN-7 AMB Questionnaire MAXIMILIAN-7 Date MAXIMILIAN - 7 assessed: 02/25/23 Feeling nervous, anxious, or on edge: 0 = Not at all Not being able to stop or control worryin = Not at all Worrying too much about different things: 0 = Not at all Trouble relaxin = Not at all Being so restless that it is hard to sit still: 0 = Not at all Becoming easily annoyed or irritable: 0 = Not at all Feeling afraid as if something awful might happen: 0 = Not at all Total MAXIMILIAN-7 score (0-4 normal; 5-9 mild; 10-14 moderate; 15-21 severe): 0 Source: Developed by Drs. Blaze Tariq, Concetta De Jesus, Ernesto Garber and colleagues, with an educational regla from [employer]. Review of Systems Const Reports difficulty sleeping (at times - Lorazepam helps), Reports fatigue, Denies fever(s) and Denies headache(s) ENT Denies dysphagia, Denies dizziness, Denies otalgia, Denies headache(s), Denies neck pain, Denies odynophagia and Denies sore throat Card Denies chest pain, Denies palpitations and Reports dyspnea on exertion (lately; mild) Resp Denies chest congestion, Denies cough, Reports dyspnea on exertion (lately; mild) and Denies wheezing GI Denies abdominal pain, Denies constipation, Denies dysphagia, Denies heartburn, Denies diarrhea, Denies nausea, Denies odynophagia and Denies vomiting Denies difficulty voiding, Denies nocturia and Denies dysuria Musc Details: (+) on and off swelling of both ankles and feet lately Reports myalgias (on and off lately), Reports arthralgias (involving multiple joints but bony. over the right knee - see HPI), Reports muscle cramps (in legs, mostly at night - see HPI for details) and Denies neck pain Neuro Denies dizziness and Denies headache(s) Psych Reports anxiety Endo Reports fatigue and Denies palpitations Aller/Immun Denies wheezing Physical exam (Primary Care) Vital Signs: Last Vital Signs Pulse 79 02/25/23 10:44 BP 124/77 02/25/23 11:29 Pulse Ox 98 02/25/23 10:44 Oxygen Delivery Method Room Air 02/25/23 10:44 BMI result Body Mass Index 26.8 Tobacco/Smoking Status: Tobacco use Status Tobacco use date assessed 02/25/23 02/25/23 10:52 Patient Tobacco Use Status Never used Tobacco 02/25/23 10:52 e-Cigarette/Vaping Use Never Used 02/25/23 10:52 PHQ-9: PHQ-9 Score PHQ-9: Total score 0 02/25/23 12:50 Depression Screening Interpretation: Negative Thrive Assessment: Date of Thrive Assessment Date Thrive assessed 02/25/23 02/25/23 10:52 Currently or been in a relationship where the following occur: no concerns reported Const General: no acute distress and alert HENMT Ears: TM's normal bilaterally and EAC's normal Throat: Yes posterior oropharynx normal and Yes tonsils normal (no TP congestion) Neck Neck: Yes no lymphadenopathy, Yes supple and Yes no JVD Resp Auscultation: clear to auscultation bilaterally, no rales and no wheezes Cardio Rate: regular rate Rhythm: regular rhythm Heart sounds: no murmurs GI Palpation (GI): Soft to palpation and nontender Auscultation: normal bowel sounds General: Yes no CVA tenderness Back/Spine/Pelvis Back: no CVA tenderness Thoracic/Lumbar Spine: No lumbar spinal tenderness Skin Rashes: no rashes Extrem General: No clubbing, No cyanosis and Yes edema (2+ bipedal edema, slightly more pronounced on the left side) Right lower extremity: knee Details: tenderness Location: of the popliteal fossa and of the medial joint line and swelling Location: of the pre-patellar area and of the infrapatellar area Assessment and Plan Assessment & Plan (1) Presence of Watchman left atrial appendage closure device: Comment: performed in December 2021 Code(s): Z95.818 - Presence of other cardiac implants and grafts Plan: (+) successful occlusion of the left atrial appendage with a 24 mm Watchman FLX device in December 2021 Continue Aspirin 81 mg QD - will need to continue on low dose Aspirin lifetime Clopidogrel was discontinued after 06/14/2022 (6 months post-Watchman device insertion) (2) ST elevation myocardial infarction (STEMI) of anterior wall: Comment: S/P CHERYL to LAD in 11/2020 Code(s): I21.09 - ST elevation (STEMI) myocardial infarction involving other coronary artery of anterior wall Plan: Continue Atorvastatin 80 mg QD for aggressive risk factor modification and lifelong Aspirin 81 mg QD Was not able to get her follow up labs done prior to her appointment today Have instructed patient to go and get these done NICK Follow up with cardiology as scheduled Will recheck her labs again in 4 months for follow up (3) Ischemic cardiomyopathy: Code(s): I25.5 - Ischemic cardiomyopathy Plan: Previous echocardiogram showed EF of 25 to 30% with some wall motion abnormalities in the LAD territory Repeat echo done at [facility] a few months ago showed (+) improvement, with NORMAL LV systolic function and EF = 67% Continue Metoprolol ER 25 mg QD and low dose (25 mg) Furosemide daily for her pedal edema and SOB States that her symptoms have improved significantly since she had her Watchman device inserted last year (12/2021) although she reports experiencing some PERALTA again more recently Will have her get some labs done NICK to further evaluate her recent symptoms (4) PAF (paroxysmal atrial fibrillation): Code(s): I48.0 - Paroxysmal atrial fibrillation Plan: Was on Xarelto 20 mg QD (for thromboembolism prophylaxis) in addition to her Clopidogrel when she developed brain hemorrhage in 06/2021, requiring emergent craniotomy and drainage as well as infusion of Prothrombin complex concentrate and Tranexamic Acid Xarelto was stopped and patient was continued on Clopidogrel and Aspirin; Clopidogrel was discontinued in mid-June 2022 as planned 6 months following her Watchman device placement Follow up with cardiology as scheduled (5) Subdural hemorrhage: Code(s): I62.00 - Nontraumatic subdural hemorrhage, unspecified Plan: Has no residual neurologic deficits except for minimal right upper extremity weakness Still reports feeling weak and gets tired very easily at times but is able to walk and ambulate on her own Neurosurgery recommends no routine follow up; only PRN (6) Headache: Code(s): R51.9 - Headache, unspecified Qualifiers: Headache chronicity pattern: acute headache Headache type: unspecified Intractability: not intractable Qualified Code(s): R51.9 - Headache, unspecified Plan: Appears resolved with no recent recurrence Head CT done in the ER a few months ago came out normal/negative Was probably due to migraine or tension headaches and do not appear to be related to her previous CVA or subdural bleed (7) Benign essential hypertension: Code(s): I10 - Essential (primary) hypertension Plan: Reinforced low sodium diet - goal is systolic BP of at least 130 to 140 mm or less BP still appears elevated here in the office but patient has brought in a few BP readings from home showing systolic BP of 120 mm or less; BP checked at home earlier today was at 124/77 Continue Amlodipine 10 mg QD, Metoprolol ER 25 mg QD and Losartan 50 mg BID Patient has raised concerns today about her Amlodipine possibly causing her recent edema and weight gain Will send her for some labs NICK to look into this and advised patient to also discuss her concerns with cardiology at her upcoming follow up appt with them (8) Osteopenia: Code(s): M85.80 - Other specified disorders of bone density and structure, unspecified site Qualifiers: Osteopenia location: unspecified Qualified Code(s): M85.80 - Other specified disorders of bone density and structure, unspecified site Plan: Results of her BMD done back in October 2022 reviewed and discussed with patient - (+) osteopenia based on the lowest T-score value of -2.2 in the femoral neck Patient relates that she's had a previous BMD done years ago at [facility] but she is unable to recall exactly when this was done and as we currently do not have this information available, this would serve as her baseline scan until we are able to locate any previous BMD report Reinforced fall precautions and advised that she should take Vitamin D and oral Calcium supplements daily (9) Left leg pain: Code(s): M79.605 - Pain in left leg Plan: Patient advised again that her left leg pain is most likely due to neuropathy but her symptoms also suggest possible RLS as well as mild OA (knee stiffness) She stopped taking her Gabapentin 100 mg Q HS a few months ago and states that she has not experienced any increase in her symptoms (10) Anxiety: Code(s): F41.9 - Anxiety disorder, unspecified Plan: Continue Lorazepam 1 mg QD PRN - Rx refilled Was started on Sertraline 25 mg Q AM a few months ago but patient did not continue on the Rx - prefers not to take anything else for now (11) Overweight (BMI 25.0-29.9): Code(s): E66.3 - Overweight Plan: Reinforced diet/exercise as tolerated/lose weight although she is having trouble walking lately due to her right knee issues Plan Follow up in 4 months Orders: Orders CK, Total+Isoenzymes, Serum 02/28/23 M25.50 - Pain in unspecified joint, M79.10 - Myalgia, unspecified site B Type Natriuretic Peptide 02/28/23 I50.9 - Heart failure, unspecified Lipid Panel 4 Months E78.00 - Pure hypercholesterolemia, unspecified Hemoglobin A1c 02/28/23 R73.01 - Impaired fasting glucose Erythrocyte Sedimentation Rate 02/28/23 M79.7 - Fibromyalgia, M25.50 - Pain in unspecified joint, M79.10 - Myalgia, unspecified site C Reactive Protein 02/28/23 M25.50 - Pain in unspecified joint, M79.10 - Myalgia, unspecified site Comprehensive [place]. Panel Fast 4 Months E78.00 - Pure hypercholesterolemia, unspecified Medications: Refilled lorazepam 1 mg PO DAILY PRN 30 tabs 0RF anxiety 30 days Coding Level of Care Code Est Pt Level 4 (26766) Diagnoses Presence of Watchman left atrial appendage closure device Z95.818 ST elevation myocardial infarction (STEMI) of anterior wall I21.09 Ischemic cardiomyopathy I25.5 PAF (paroxysmal atrial fibrillation) I48.0 Subdural hemorrhage I62.00 Acute nonintractable headache, unspecified headache type R51.9 Headache chronicity pattern: acute headache Headache type: unspecified Intractability: not intractable Benign essential hypertension I10 Osteopenia, unspecified location M85.80 Osteopenia location: unspecified Left leg pain M79.605 Anxiety F41.9 Overweight (BMI 25.0-29.9) E66.3
[2023-02-25 11:29] VITALS: BP 124/77
== END 2023-02-25 11:52 | disposition home or self-care (01) ==
PROVIDERS: Visit Provider Internal Medicine
DX: I48.0 Paroxysmal atrial fibrillation (principal); I62.00 Nontraumatic subdural hemorrhage, unspecified; I25.2 Old myocardial infarction; Z95.818 Presence of other cardiac implants and grafts; I25.5 Ischemic cardiomyopathy; R51.9 Headache, unspecified; I10 Essential (primary) hypertension; M85.80 Other specified disorders of bone density and structure, unspecified site; M79.605 Pain in left leg; F41.9 Anxiety disorder, unspecified; E66.3 Overweight
CPT/HCPCS: 99214

== ENCOUNTER 2023-02-28 08:16 | Outpatient (REF) | payer MEDICARE, SELFPAY ==
[2023-02-28 11:21] LABS: MANUAL DIFF FLAG NO
[2023-02-28 11:48] LABS: Basophils Absolute Auto 0.1 X10*3/uL (0.0-0.2); Basophils Percent Auto 1.1 % (0-2); Eosinophils Absolute Auto 0.2 X10*3/uL (0.0-0.4); Eosinophils Percent Auto 3.8 % (0-4); Hematocrit 43.5 % (37.0-47.0); Hemoglobin 14.6 g/dl (12.0-16.0); Imm Gran Abs Auto 0.01 X10*3/uL (0.00-0.03); Imm Gran Pct Auto 0.2 % (0.0-0.4); Lymphocytes Absolute Auto 1.9 X10*3/uL (1.2-4.9); Lymphocytes Percent Auto 29.5 % (20-40); Mean Corpuscular HGB Conc 33.6 g/dl (31.0-35.0); Mean Corpuscular Hemoglobin 31.7 pg (27.0-33.0); Mean Corpuscular Volume 94.4 fL (80.0-98.0); Mean Platelet Volume 11.5 fL (9.4-12.3); Monocytes Absolute Auto 0.6 X10*3/uL (0.1-1.2); Monocytes Percent Auto 9.5 % (2-11); Neutrophils Absolute Auto 3.5 x10*3/uL (2.0-8.3); Neutrophils Percent Auto 55.9 % (45-73); Platelet Count 200 X10*3/uL (160-400); Red Blood Count 4.61 X10*6/uL (4.20-5.50); Red Cell Distribution Width 12.8 % (11.0-16.0); White Blood Count 6.3 X10*3/uL (4.8-10.8)
[2023-02-28 12:01] LABS: Estimated Average Glucose 108 mg/dL; Hemoglobin A1c % 5.4 % (<6.0)
[2023-02-28 12:26] LABS: Erythrocyte Sedimentation Rate 10 MM/HR (0-20)
[2023-02-28 12:33] LABS: Alanine Aminotransferase 22 U/L (0-31); Albumin Level 4.1 g/dL (3.5-5.0); Alkaline Phosphatase 70 U/L (39-117); Anion Gap 12 (12-20); Aspartate Amino Transferase 26 U/L (5-31); Blood Urea Nitrogen 17 mg/dL (9-16); C Reactive Protein < 0.10 mg/dL (< or = 0.50); Calcium 10.1 mg/dL (8.4-10.2); Carbon Dioxide 26 mmol/L (22-29); Chloride 108 mmol/L (96-108); Cholesterol 128 mg/dL (<200); Estimated Glomerular Filt Rate > 60; Glucose Fasting 114 mg/dL (60-99); HDL Cholesterol 59 mg/dL (>40); LDL Cholesterol Calculated 44 mg/dL (<100); Sodium 142 mmol/L (135-145); TSH reflex Free T4 1.89 uIU/mL (0.32-4.0); Total Protein 6.8 g/dL (6.5-8.0); Triglycerides 126 mg/dL (<150); Vitamin D 25-OH Total 47.3 ng/mL (>30)
[2023-02-28 13:02] LABS: B Type Natriuretic Peptide 54 pg/mL (<100)
[2023-02-28 13:39] LABS: Appearance Urine Clear; Color Urine Yellow; Glucose Urine UA Negative (Negative); Leukocyte Esterase Urine Trace (Negative); Nitrite Urine Negative (Negative); PH 5.5 (5.0-9.0); Specific Gravity - Urine 1.015 (1.005-1.025); UMIC TRIGGER UACC YES; Urine Blood Negative (Negative); Urine Ketones Negative (Negative); Urine Protein Negative (Neg-Trace)
[2023-02-28 13:45] LABS: Bacteria Urine None Seen (None Seen); Hyaline Casts Urine 0-2 /LPF (0-2); RBC Urine 0-2 /HPF (0-2); Squamous Epithelial Cell Urine 0-2 /HPF (0-2); WBC Urine 0-5 /HPF (0-5)
[2023-03-07 20:38] LABS: CK-BB None Detected (None Detected); CK-MB 0 % (<5); CK-MM 100 % (95-100); Creatine Kinase,Total,Serum 54 U/L (29-143)
== END 2023-02-28 08:17 | disposition home or self-care (01) ==
LOC: HO.HMGCLDS 08:16
PROVIDERS: PCP Internal Medicine; Visit Provider Internal Medicine
DX: E55.9 Vitamin D deficiency, unspecified (principal); R73.01 Impaired fasting glucose; M79.7 Fibromyalgia; I50.9 Heart failure, unspecified; M25.50 Pain in unspecified joint; M79.10 Myalgia, unspecified site; I10 Essential (primary) hypertension; E78.00 Pure hypercholesterolemia, unspecified; I48.0 Paroxysmal atrial fibrillation; R30.0 Dysuria
CPT/HCPCS: 36415; 80053; 80061; 81001; 81003; 82306; 82552; 83036; 83880; 84443; 85025; 85652; 86140

== ENCOUNTER 2023-03-06 12:39 | Outpatient (AMB) | payer MEDICARE, SELFPAY ==
--- NOTE | 2023-03-06 13:30 | AM.OFFWIN_ITS ---
Intake Vital Signs 03/06/23 13:31 Height 5 ft 5 in Weight 161 lb BMI 26.8 BP 130/70 Blood Pressure Location Lt brachial Position Sitting Pulse 67 Pulse Source Pulse Oximeter Temp 97.8 F Temp Source Temporal Artery Scan Pulse Oximetry (%) 98 Oxygen Delivery Method Room Air Intake Visit Reasons: UTI? Intake Note: Pt is here c/o frequent urination. Patient Tobacco Use Status: Never used Tobacco Allergies lisinopril [From ZESTRIL] Adverse Reaction (Intermediate, Verified 03/06/23 14:01) COUGH Medication List - Last Reconciled 03/06/23 by Pavan Kessler MD amlodipine 5 mg PO DAILY 90 days aspirin (Adult Low Dose Aspirin) 81 mg PO DAILY atorvastatin 80 mg PO DAILY 90 days lorazepam 1 mg PO DAILY PRN 30 days losartan 100 mg (2 x 50 mg) PO DAILY metoprolol succinate ER 25 mg PO BEDTIME multivitamin 1 tab PO DAILY Do you need a note to return to daycare/school/sports/work: No HPI UTI? HPI Details Patient presents for a sick visit. Reports symptoms of increased frequency of urination, burning on urination and discomfort in the suprapubic a rosy. Symptoms started in the past few days. No fevers or chills. No nausea or vomiting. [facility] Medical History (Updated 03/06/23 @ 14:02 by Pavan Kessler MD) Anxiety Benign essential hypertension Essential hypertension senior living (current) use of anticoagulants Osteopenia Overweight (BMI 25.0-29.9) PAF (paroxysmal atrial fibrillation) Presence of Watchman left atrial appendage closure device ST elevation myocardial infarction (STEMI) of anterior wall Status post insertion of drug-eluting stent into left anterior descending (LAD) artery (~11/29/20) Subdural hemorrhage Surgical History History of cardiac catheterization (~11/29/20) History of total left knee replacement (~2018) S/P craniotomy (~06/2021) Family History Father Myocardial infarction Mother HTN (hypertension) Social History Housing: House Alcohol intake: current Alcohol intake frequency: holidays/special occasions only Patient Tobacco Use Status: Never used Tobacco e-Cigarette/Vaping Use: Never Used Second Hand Smoke Exposure: No service: No Current occupational status: retired Cognitive needs: No Hearing needs: Yes Vision needs: Yes Physical Exam Vital Signs: Last Vital Signs Temp 97.8 F 03/06/23 13:31 Pulse 67 03/06/23 13:31 BP 130/70 03/06/23 13:31 Pulse Ox 98 03/06/23 13:31 Oxygen Delivery Method Room Air 03/06/23 13:31 BMI result Body Mass Index 26.8 General: Yes bladder normal to palpation and Yes no CVA tenderness Bimanual exam- vagina & uterus: bladder normal to palpation Back/Spine/Pelvis Back: no CVA tenderness Results AMB Urinalysis, Automated UA Leukoctes 500 Lavon/uL Last Edit by Mica Randolph CMA on 03/06/23 13:35 UA Nitrite Positive Last Edit by Mica Randolph CMA on 03/06/23 13:35 UA Urobilinogen 0.2 mg/dL Last Edit by Mica Randolph CMA on 03/06/23 13:35 UA Protein 15 mg/dL Last Edit by Mica Randolph CMA on 03/06/23 13:35 UA pH 6.0 Last Edit by Mcia Randolph CMA on 03/06/23 13:35 UA Blood 200 Cristo/uL Last Edit by Mica Randolph CMA on 03/06/23 13:35 UA Specific [place] 1.015 Last Edit by Mica Randolph CMA on 03/06/23 13:3 5 UA Ketone Negative Last Edit by Mica Randolph CMA on 03/06/23 13:35 UA Bilirubin 0 mg/dL Last Edit by Mica Randolph CMA on 03/06/23 13:35 UA Glucose 0 mg/dL Last Edit by Mica Randolph CMA on 03/06/23 13:35 Results Reviewed Results Reviewed: Laboratory Last Values Urine pH (Auto) 6.0 03/06/23 13:34 Specific [place] (Auto) 1.015 03/06/23 13:34 Urine Protein (Auto) 15 mg/dL 03/06/23 13:34 Glucose (UA)(Auto) 0 mg/dL 03/06/23 13:34 Urine Ketones (Auto) Negative 03/06/23 13:34 Urine Blood (Auto) 200 Cristo/uL 03/06/23 13:34 Urine Nitrite (Auto) Positive 03/06/23 13:34 Urine Bilirubin (Auto) 0 mg/dL 03/06/23 13:34 Urine Urobilinogen (Auto) 0.2 mg/dL 03/06/23 13:34 Leukocyte Esterase (Auto) 500 Lavon/uL 03/06/23 13:34 Assessment & Plan Assessment & Plan (1) Urinary tract infection: Code(s): N39.0 - Urinary tract infection, site not specified Plan: Bactrim and Pyridium called in. If symptoms do not improve to follow-up here. Orders: Orders AMB Urinalysis Automated Today Z13.9 - Encounter for screening, unspecified Coding Level of Care Code Est Pt Level 3 (02969) Diagnoses Urinary tract infection N39.0
[2023-03-06 13:31] VITALS: BP 130/70; PULSE 67; TEMP 36.6; O2SAT 98; BMI 26.8
== END 2023-03-06 14:13 | disposition home or self-care (01) ==
PROVIDERS: PCP Internal Medicine; Visit Provider Internal Medicine
DX: N39.0 Urinary tract infection, site not specified (principal); R35.0 Frequency of micturition
CPT/HCPCS: 81003; 99213

== ENCOUNTER 2023-06-24 08:13 | Outpatient (REF) | payer MEDICARE, SELFPAY ==
[2023-06-24 12:17] LABS: Alanine Aminotransferase 25 U/L (0-31); Alkaline Phosphatase 62 U/L (39-117); Anion Gap 13 (12-20); Aspartate Amino Transferase 29 U/L (5-31); Blood Urea Nitrogen 21 mg/dL (9-16); Calcium 9.5 mg/dL (8.4-10.2); Carbon Dioxide 24 mmol/L (22-29); Chloride 112 mmol/L (96-108); Cholesterol 125 mg/dL (<200); Estimated Glomerular Filt Rate > 60; Glucose Fasting 106 mg/dL (60-99); HDL Cholesterol 57 mg/dL (>40); LDL Cholesterol Calculated 51 mg/dL (<100); Potassium 3.7 mmol/L (3.3-5.1); Sodium 145 mmol/L (135-145); Total Protein 6.6 g/dL (6.5-8.0); Triglycerides 85 mg/dL (<150)
== END 2023-06-24 08:14 | disposition home or self-care (01) ==
LOC: HO.HMGCLDS 08:13
PROVIDERS: PCP Internal Medicine; Visit Provider Internal Medicine
DX: E78.00 Pure hypercholesterolemia, unspecified (principal)
CPT/HCPCS: 36415; 80053; 80061

== ENCOUNTER 2023-07-02 10:28 | Outpatient (AMB) | payer MEDICARE, SELFPAY ==
[2023-07-02 10:37] VITALS: BP 162/80; PULSE 76; O2SAT 98; BMI 26.5
--- NOTE | 2023-07-02 10:37 | A.OFFPC_ITS ---
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 Required: No Accompanied by: Self / Same As Patient Allergies lisinopril [From ZESTRIL] Adverse Reaction (Intermediate, Verified 07/02/23 10:56) COUGH Medication List - Last Reconciled 07/02/23 by Jay Vasquez MD amlodipine 5 mg PO DAILY 90 days aspirin (Adult Low Dose Aspirin) 81 mg PO DAILY atorvastatin 80 mg PO DAILY 90 days lorazepam 1 mg PO DAILY PRN 30 days losartan 100 mg (2 x 50 mg) PO DAILY metoprolol succinate ER 25 mg PO BEDTIME multivitamin 1 tab PO DAILY Tobacco use date assessed: 07/02/23 Fall risk assessment: No Falls in past year Last assessed Fall Risk: 07/02/23 Dental Screening Dental Screen Date: 07/02/23 Did you have a dental visit in the last 12 months?: Yes Did you have a dental problem in the last 6 months where you did not have access to dental care?: No Was dental information given to patient?: Patient has dentist HPI 4 mon f/u HPI Details Patient comes in today for her follow up visit States that she feels okay but she continues to experience recurrent discomfort and sometimes pain in her right knee, especially over the back of the knee Recalls that she somehow sustained a fracture in her tibia as well as some meniscal injury back in January 2023 based on her MRI findings done at the time but she did not require surgery Is concerned that her recurrent knee symptoms may be due to the effects of her meds, particularly Amlodipine, as she read on the product insert of the Rx that it can cause some leg swelling and muscle pain States that she mentioned this to cardiology at her recent appointment but cardiology did not seem too concerned about these Adds that she has noticed some increasing forgetfulness on her part over the past few weeks as well as unsteady gait at times recently and is concerned that these may also be related to some of the medications that she is presently on She denies any headaches or dizziness Denies any chest pains, no SOB No nausea/vomiting, no abdominal pain No change in bowel habits noted Needs her Lorazepam Rx refilled today Had her follow up labs done last week - to discuss her results [facility] Medical History Overweight (BMI 25.0-29.9) Osteopenia Presence of Watchman left atrial appendage closure device Anxiety Benign essential hypertension Status post insertion of drug-eluting stent into left anterior descending (LAD) artery (~11/29/20) ST elevation myocardial infarction (STEMI) of anterior wall 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 Essential hypertension PAF (paroxysmal atrial fibrillation) Surgical History S/P craniotomy (~06/2021) History of cardiac catheterization (~11/29/20) History of total left knee replacement (~2018) Family History Father Myocardial infarction Mother HTN (hypertension) Social History Housing: House Alcohol intake: current Alcohol intake frequency: holidays/special occasions only Patient Tobacco Use Status: Never used Tobacco e-Cigarette/Vaping Use: Never Used Second Hand Smoke Exposure: No service: No Current occupational status: retired Cognitive needs: No Hearing needs: Yes Vision needs: Yes Questionnaire PHQ-9 Over the last 2 weeks, how often have you been bothered by any of the following problems? 1. Little interest or pleasure in doing things: not at all 2. Feeling down, depressed, or hopeless: not at all 3. Trouble falling or staying asleep, or sleeping too much: not at all 4. Feeling tired or having little energy: not at all 5. Poor appetite or overeating: not at all 6. Feeling bad about yourself - or that you are a failure or have let yourself or your family down: not at all 7. Trouble concentrating on things, such as reading the newspaper or watching television: not at all 8. Moving or speaking so slowly that other people could have noticed. Or the opposite - being so fidgety or restless that you have been moving around a lot more than usual: not at all 9. Thoughts that you would be better off or of hurting yourself in some way: not at all Total score: 0 Depression Screening Interpretation: Negative Depression Screening Done: Yes 63939 - PHQ-9 Billing: Yes Source: Developed by Drs. Blaze Tariq, Concetta De Jesus, Ernesto Garber and colleagues, with an educational regla from [employer]. Thrive Questionnaire Date Thrive assessed: 07/02/23 I am a: Patient What is your living situation today?: I have a steady place to live Within the past 12 months, did the food you bought not last and you didn't have the money to get more?: Never true Within the past 12 months, did you worry whether your food would run out before you got money to buy more?: Never true Do you have trouble paying for medicines?: No Do you have trouble getting transportation to medical appointments?: No Do you have trouble paying your heating and electricity bill?: No Do you have trouble taking care of your child, family member or friend?: No Do you have trouble with day-to-day activities such as bathing, preparing meals, shopping, managing finances, etc.?: No Are you currently unemployed and looking for a job?: No Are you interested in more education?: No Please select the resources that you would like help with: None Currently or been in a relationship where the following occur: no concerns reported AUDIT C Alcohol Use Questionnaire (AUDIT-C) 1. How often do you have a drink containing alcohol?: Monthly or less 2. How many drinks containing alcohol do you have on a typical day when you are drinking?: 1 or 2 3. How often do you have six or more drinks on one occasion?: Never Total Score: 1 Score Reviewed/Action Taken: Yes MAXIMILIAN-7 AMB Questionnaire MAXIMILIAN-7 Date MAXIMILIAN - 7 assessed: 07/02/23 Feeling nervous, anxious, or on edge: 0 = Not at all Not being able to stop or control worryin = Not at all Worrying too much about different things: 0 = Not at all Trouble relaxin = Not at all Being so restless that it is hard to sit still: 0 = Not at all Becoming easily annoyed or irritable: 0 = Not at all Feeling afraid as if something awful might happen: 0 = Not at all Total MAXIMILIAN-7 score (0-4 normal; 5-9 mild; 10-14 moderate; 15-21 severe): 0 Source: Developed by Drs. Blaze Tariq, Concetta De Jesus, Ernesto Garber and colleagues, with an educational regla from [employer]. Review of Systems Const Denies chills, Denies fatigue, Denies fever(s) and Denies headache(s) ENT Denies dysphagia, Denies dizziness, Denies otalgia, Denies headache(s), Denies neck pain, Denies odynophagia and Denies sore throat Card Denies chest pain, Denies palpitations and Denies dyspnea Resp Denies cough and Denies dyspnea GI Denies abdominal pain, Denies constipation, Denies dysphagia, Denies heartburn, Denies diarrhea, Denies nausea, Denies odynophagia and Denies vomiting Denies difficulty voiding, Denies nocturia, Denies dysuria and Denies urinary urgency Musc Reports abnormal gait (unsteady gait), Reports arthralgias (on and off, in the right knee, especially over the anteromedial aspect), Denies joint swelling and Denies neck pain Skin/Breast Denies rash Neuro Reports abnormal gait (unsteady gait), Denies dizziness, Denies headache(s) and Reports memory loss (recent) Psych Reports memory loss (recent) Endo Denies fatigue and Denies palpitations Physical exam (Primary Care) Vital Signs: Last Vital Signs Pulse 76 07/02/23 10:37 BP 162/80 H 07/02/23 10:37 Pulse Ox 98 07/02/23 10:37 Oxygen Delivery Method Room Air 07/02/23 10:37 BMI result Body Mass Index 26.5 Tobacco/Smoking Status: Tobacco use Status Tobacco use date assessed 07/02/23 07/02/23 10:43 Patient Tobacco Use Status Never used Tobacco 07/02/23 10:43 e-Cigarette/Vaping Use Never Used 07/02/23 10:43 PHQ-9: PHQ-9 Score PHQ-9: Total score 0 07/02/23 10:43 Depression Screening Interpretation: Negative Thrive Assessment: Date of Thrive Assessment Date Thrive assessed 07/02/23 07/02/23 10:43 Currently or been in a relationship where the following occur: no concerns reported Const General: no acute distress and alert HENMT Ears: TM's normal bilaterally and EAC's normal Throat: Yes posterior oropharynx normal and Yes tonsils normal (no TP congestion) Neck Neck: Yes no lymphadenopathy, Yes supple and Yes no JVD Resp Auscultation: clear to auscultation bilaterally, no rales and no wheezes Cardio Rate: regular rate Rhythm: regular rhythm Heart sounds: no murmurs GI Palpation (GI): Soft to palpation and nontender Auscultation: normal bowel sounds Skin Rashes: no rashes Extrem General: No clubbing, No cyanosis and Yes edema (trace bipedal edema, slightly more pronounced on the left side) Right lower extremity: knee Details: tenderness Location: of the popliteal fossa and of the medial joint line; no swelling Results Reviewed Results Reviewed: Laboratory Tests 06/24/23 08:28 Sodium 145 Potassium 3.7 Creatinine 0.82 Estimated GFR > 60 Fasting Glucose 106 H Calcium 9.5 AST 29 ALT 25 Triglycerides 85 Cholesterol 125 LDL Cholesterol, Calc 51 HDL Cholesterol 57 Assessment and Plan Assessment & Plan (1) Presence of Watchman left atrial appendage closure device: Comment: performed in December 2021 Code(s): Z95.818 - Presence of other cardiac implants and grafts Plan: (+) successful occlusion of the left atrial appendage with a 24 mm Watchman FLX device in December 2021 Continue Aspirin 81 mg QD - will need to continue on low dose Aspirin lifetime Clopidogrel was discontinued after 06/14/2022 (6 months post-Watchman device insertion) (2) ST elevation myocardial infarction (STEMI) of anterior wall: Comment: S/P CHERYL to LAD in 11/2020 Code(s): I21.09 - ST elevation (STEMI) myocardial infarction involving other coronary artery of anterior wall Plan: Results of her labs done last week reviewed and discussed with patient Continue Atorvastatin 80 mg QD for aggressive risk factor modification and lifelong Aspirin 81 mg QD Follow up with cardiology as scheduled Will recheck her labs and fasting lipids in 4 months for follow up (3) Ischemic cardiomyopathy: Code(s): I25.5 - Ischemic cardiomyopathy Plan: Previous echocardiogram showed EF of 25 to 30% with some wall motion abnormalities in the LAD territory Repeat echo done at [facility] [place] a few months ago showed (+) improvement, with NORMAL LV systolic function and EF = 67% Continue Metoprolol ER 25 mg QD She was on low dose (25 mg) Furosemide daily for her pedal edema and SOB in the past but has not taken this in a while now States that her symptoms have improved significantly since she had her Watchman device inserted last year (12/2021) (4) PAF (paroxysmal atrial fibrillation): Code(s): I48.0 - Paroxysmal atrial fibrillation Plan: Was on Xarelto 20 mg QD (for thromboembolism prophylaxis) in addition to her Clopidogrel when she developed brain hemorrhage in 06/2021, requiring emergent craniotomy and drainage as well as infusion of Prothrombin complex concentrate and Tranexamic Acid Xarelto was stopped and patient was continued on Clopidogrel and Aspirin; Clopidogrel was discontinued in mid-June 2022 as planned 6 months following her Watchman device placement Follow up with cardiology as scheduled (5) Subdural hemorrhage: Code(s): I62.00 - Nontraumatic subdural hemorrhage, unspecified Plan: Has no residual neurologic deficits except for minimal right upper extremity weakness Still reports feeling weak and gets tired very easily at times but is able to walk and ambulate on her own Neurosurgery recommends no routine follow up; only PRN (6) Headache: Code(s): R51.9 - Headache, unspecified Qualifiers: Headache type: unspecified Headache chronicity pattern: acute headache Intractability: not intractable Qualified Code(s): R51.9 - Headache, unspecified Plan: Appears resolved with no recent recurrence Head CT done in the ER a few months ago came out normal/negative Was probably due to migraine or tension headaches and do not appear to be related to her previous CVA or subdural bleed (7) Memory impairment: Code(s): R41.3 - Other amnesia Plan: Patient reports experiencing some issues with memory recall (memory impairment) over the past few months and is concerned that this may be due to side effects of some of her current Rx Discussed that this may actually be due to the effects of her previous brain hemorrhage instead of side effects from her meds Will refer her to neurology for further evaluation and management (8) Benign essential hypertension: Code(s): I10 - Essential (primary) hypertension Plan: Reinforced low sodium diet - goal is systolic BP of at least 130 to 140 mm or less States that her BP readings at home remains normal and that her blood pressure seems to go up whenever she comes into the office BP was initially at 162/80 mm but later came down to 138/82 mm when rechecked several minutes later Continue Amlodipine 10 mg QD, Metoprolol ER 25 mg QD and Losartan 50 mg BID Have advised her to speak with cardiology about her concerns with her meds and that I will leave it up to cardiology if they need to change of adjust her current meds or not (9) Osteopenia: Code(s): M85.80 - Other specified disorders of bone density and structure, unspecified site Qualifiers: Osteopenia location: unspecified Qualified Code(s): M85.80 - Other specified disorders of bone density and structure, unspecified site Plan: Her BMD done back in October 2022 revealed (+) osteopenia based on the lowest T- score value of -2.2 in the femoral neck This serves as her baseline exam as there are no other BMDs available in her chart for review Reinforced fall precautions and she is advised to continue taking her oral Vitamin D and Calcium supplements daily (10) Left leg pain: Code(s): M79.605 - Pain in left leg Plan: Patient advised again that her left leg pain is most likely due to neuropathy but her recent description of symptoms also suggest possible RLS as well as mild OA (knee stiffness) She was on Gabapentin 100 mg Q HS previously but she came off her Rx after her last visit as instructed Advised that if she feels that her joint aches and muscle pains have increased lately, they may be related to her coming off her Gabapentin (11) Right knee pain: Code(s): M25.561 - Pain in right knee Qualifiers: Chronicity: unspecified Qualified Code(s): M25.561 - Pain in right knee Plan: Advised that this is likely related to her meniscal injury and tibial fracture from a few months ago Discussed that even though she did not require surgery (per orthopedics), her injuries will still take a while to completely heal up and she may also never recover completely and will continue to have some residual symptoms in her knee/leg and the best case scenario is that her symptoms will be mostly manageable and will not significantly impact her mobility Follow up with orthopedics as scheduled (12) Anxiety: Code(s): F41.9 - Anxiety disorder, unspecified Plan: Continue Lorazepam 1 mg QD PRN - Rx refilled Was started on Sertraline 25 mg Q AM a few months ago but patient did not continue on the Rx - prefers not to take anything else for now (13) Overweight (BMI 25.0-29.9): Code(s): E66.3 - Overweight Plan: Reinforced diet/exercise as tolerated/lose weight although she is having trouble walking lately due to her right knee issues and unsteady gait Plan Follow up in 4 months Orders: Orders Complete Blood Count Auto Diff 4 Months I10 - Essential (primary) hypertension Comprehensive Lane. Panel Fast 4 Months E78.00 - Pure hypercholesterolemia, unspecified TSH reflex Free T4 4 Months E78.00 - Pure hypercholesterolemia, unspecified UA CC w/rflx Micro + Cult 4 Months R30.0 - Dysuria Lipid Panel 4 Months E78.00 - Pure hypercholesterolemia, unspecified Vitamin D 25-OH Total 4 Months E55.9 - Vitamin D deficiency, unspecified Hemoglobin A1c 4 Months R73.01 - Impaired fasting glucose Referrals Neurology Referral R41.3 - Other amnesia Medications: Refilled lorazepam 1 mg PO DAILY 30 days PRN 30 tabs 0RF anxiety Coding Level of Care Code Est Pt Level 4 (13506) Diagnoses Presence of Watchman left atrial appendage closure device Z95.818 ST elevation myocardial infarction (STEMI) of anterior wall I21.09 Ischemic cardiomyopathy I25.5 PAF (paroxysmal atrial fibrillation) I48.0 Subdural hemorrhage I62.00 Acute nonintractable headache, unspecified headache type R51.9 Headache type: unspecified Headache chronicity pattern: acute headache Intractability: not intractable Memory impairment R41.3 Benign essential hypertension I10 Osteopenia, unspecified location M85.80 Osteopenia location: unspecified Left leg pain M79.605 Right knee pain, unspecified chronicity M25.561 Chronicity: unspecified Anxiety F41.9 Overweight (BMI 25.0-29.9) E66.3
[2023-07-02 11:02] VITALS: BP 138/82
== END 2023-07-02 11:17 | disposition home or self-care (01) ==
PROVIDERS: PCP Internal Medicine; Visit Provider Internal Medicine
DX: I48.0 Paroxysmal atrial fibrillation (principal); I62.00 Nontraumatic subdural hemorrhage, unspecified; I25.2 Old myocardial infarction; Z95.818 Presence of other cardiac implants and grafts; I25.5 Ischemic cardiomyopathy; R51.9 Headache, unspecified; R41.3 Other amnesia; I10 Essential (primary) hypertension; M85.80 Other specified disorders of bone density and structure, unspecified site; M79.605 Pain in left leg; M25.561 Pain in right knee; F41.9 Anxiety disorder, unspecified
CPT/HCPCS: 99214

== ENCOUNTER 2023-08-15 08:51 | Outpatient (REF) | payer MEDICARE, SELFPAY ==
--- NOTE | ~2023-08-15 | CT_ITS ---
EXAMINATION: CT HEAD WITHOUT CONTRAST CLINICAL INFORMATION: Mild cognitive impairment. COMPARISON: CT scan of the head 06/26/2016. TECHNIQUE: Multidetector CT imaging of the head was obtained without the use of intravenous contrast. Coronal and sagittal reformatted images were generated at the technologist workstation. This CT examination was performed using dose optimization techniques as appropriate, variously including the following: *Automated exposure control *Adjustment of mA and/or kV according to patient size (this includes techniques or standardized protocols for targeted exams where dose is matched to indication/reason for exam; i.e. extremities or head) *Use of iterative reconstruction technique DLP: 633 mGy-cm. FINDINGS: There is no evidence of acute intracranial hemorrhage or territorial infarction. No abnormal mass-effect or midline shift is seen. Cristina to white matter differentiation is well preserved. No extra-axial fluid collections are identified. There is mild commensurate prominence of the ventricles and sulci consistent with diffuse volume loss. There are patchy areas of low attenuation in the periventricular and subcortical white matter, most consistent with mild chronic microvascular ischemic changes and there are likely lacunar infarcts in the bilateral basal ganglia. There are sequelae of a left temporofrontal craniotomy, which is a new finding compared to the available prior CT scan. There is extensive, likely dural calcification, subjacent to the craniotomy. There are atheromatous calcifications of the bilateral vertebral and cavernous internal carotid arteries. There are no acute osseous or soft tissue abnormalities. The visualized mastoid air cells are well-aerated. There is a small retention cyst anteriorly in the left sphenoid sinus. CT/CT head/brain wo IV con IMPRESSION: 1. There are no acute bleeds or territorial infarcts. No masses are demonstrated. 2. There is diffuse volume loss and there are chronic microvascular ischemic changes and lacunar infarcts. 3. There are sequela of a left temporofrontal craniotomy, which is a new finding compared to the available prior CT scan. Correlate with surgical history, and if interval prior studies become available, comparison can be made.
== END 2023-08-15 08:52 | disposition home or self-care (01) ==
LOC: HO.CT 08:51
PROVIDERS: PCP Internal Medicine; Visit Provider Psychiatry & Neurology Neurology
DX: G31.84 Mild cognitive impairment of uncertain or unknown etiology (principal)
CPT/HCPCS: 70450

== ENCOUNTER 2023-08-22 08:00 | Outpatient (REF) | payer MEDICARE, SELFPAY ==
[2023-08-22 12:19] LABS: Vitamin B12 588 pg/mL (200-900)
== END 2023-08-22 08:01 | disposition home or self-care (01) ==
LOC: HO.HMGCLDS 08:00
PROVIDERS: PCP Internal Medicine; Visit Provider Psychiatry & Neurology Neurology
DX: G31.84 Mild cognitive impairment of uncertain or unknown etiology (principal)
CPT/HCPCS: 36415; 82607

== ENCOUNTER 2023-09-10 09:46 | Outpatient (AMB) | payer MEDICARE, SELFPAY ==
--- NOTE | 2023-09-10 09:54 | A.OFFVIS_ITS ---
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 To recall, she had STEMI in 2020. Status post LAD stenting. In jun 2021, she had subdural hemorrhage and underwent craniotomy for the same. She was previously on Xarelto, but then underwent Watchman procedure. Since last seen, she states she actually doing quite well. No complaints like angina or shortness of breath or in fact anything cardiac sounding. In fact, she is feeling good considering all the medical issues she has had. [facility] Medical History Overweight (BMI 25.0-29.9) Osteopenia Presence of Watchman left atrial appendage closure device Anxiety Benign essential hypertension Status post insertion of drug-eluting stent into left anterior descending (LAD) artery (~11/29/20) ST elevation myocardial infarction (STEMI) of anterior wall Subdural hemorrhage nursing home (current) use of anticoagulants Essential hypertension PAF (paroxysmal atrial fibrillation) Surgical History S/P craniotomy (~06/2021) History of cardiac catheterization (~11/29/20) History of total left knee replacement (~2018) Family History Father Myocardial infarction Mother HTN (hypertension) Social History Housing: House Alcohol intake: current Alcohol intake frequency: holidays/special occasions only Patient Tobacco Use Status: Never used Tobacco e-Cigarette/Vaping Use: Never Used Second Hand Smoke Exposure: No service: No Current occupational status: retired Cognitive needs: No Hearing needs: Yes Vision needs: Yes Review of Systems Const Denies weakness ENT Denies dizziness Card Denies chest pain, Denies chest pain with activity, Denies syncope, Denies rapid heart rate, Denies pedal edema, Denies edema, Denies leg edema, Denies lightheadedness, Denies palpitations, Denies dyspnea, Denies dyspnea on exertion and Denies orthopnea Resp Denies cough, Denies dyspnea and Denies dyspnea on exertion GI Denies hematochezia and Denies change in stool character Musc Denies abnormal gait, Denies muscle cramps, Denies muscle weakness, Denies numbness, Denies radiating pain into limb and Denies tingling Neuro Denies abnormal gait, Denies dizziness, Denies syncope, Denies numbness, Denies tingling and Denies weakness Endo Denies palpitations Physical Exam Vital Signs: Last Vital Signs Pulse 67 09/10/23 09:55 BP 144/78 H 09/10/23 09:55 BMI result Body Mass Index 26.8 Const General: comfortable and no acute distress Orientation/consciousness: patient oriented x3 HEENT Other: Unremarkable Head: Yes normal to inspection Neck Neck: Yes normal visual inspection Chest Chest palpation & inspection: normal inspection of the chest Resp Auscultation: clear to auscultation bilaterally Cardio Palpation: normal PMI Heart sounds: S1 normal heart sound present, S2 normal heart sound present, no gallops, no murmurs and no rubs GI Palpation (GI): Soft to palpation Back/Spine/Pelvis Other: unremarkable Skin General skin exam: no rashes or lesions noted Neuro General: patient oriented x3 Extrem General: Yes normal to inspection Psych Mental Status: mental status grossly normal Office Procedures EKG Details: EKG with sinus rhythm at 67/Min; no significant ST-T changes and otherwise unremarkable. [place]. [id number]-[id number], Complete Assessment & Plan Assessment & Plan (1) PAF (paroxysmal atrial fibrillation): Code(s): I48.0 - Paroxysmal atrial fibrillation Plan: Continue beta-blockers. Used to be on Xarelto but now status post Watchman device. Continue low-dose aspirin. No recent issues. (2) Subsequent ST elevation (STEMI) myocardial infarction of anterior wall: Code(s): I22.0 - Subsequent ST elevation (STEMI) myocardial infarction of anterior wall Plan: Cardiac catheterization reviewed from 11/2020. She had 99% stenosis in the mid LAD and 75% stenosis in the distal LAD. 60% stenosis in the OM2. RCA was normal. Status post PCI to mid LAD. Continue aspirin. Continue beta-blockers and statins. Clinically, no angina. LDL cholesterol is 51 mg/dL. (3) Ischemic cardiomyopathy: Code(s): I25.5 - Ischemic cardiomyopathy Plan: LVEF has normalized on the recent echocardiogram. (4) Essential hypertension: Code(s): I10 - Essential (primary) hypertension Plan: Seems to be on the higher side. Advised to do some home readings and contact us. Currently on amlodipine/losartan. May need a higher dose of amlodipine. (5) Presence of Watchman left atrial appendage closure device: Comment: performed in December 2021 Code(s): Z95.818 - Presence of other cardiac implants and grafts Plan: Long-term aspirin. (6) Subdural hemorrhage: Code(s): I62.00 - Nontraumatic subdural hemorrhage, unspecified Plan: Recovered completely. No neurological deficits. Coding Level of Care Code Est Pt Level 4 (59330) Diagnoses PAF (paroxysmal atrial fibrillation) I48.[address] elevation (STEMI) myocardial infarction of anterior wall I22.0 Ischemic cardiomyopathy I25.5 Essential hypertension I10 Presence of Watchman left atrial appendage closure device Z95.818 Subdural hemorrhage I62.00 CPT Codes EKG - CPT: 44128-[id number], Complete ([id number])
[2023-09-10 09:55] VITALS: BP 144/78; PULSE 67; BMI 26.8
== END 2023-09-10 10:12 | disposition home or self-care (01) ==
PROVIDERS: PCP Internal Medicine; Visit Provider Internal Medicine
DX: I48.0 Paroxysmal atrial fibrillation (principal); I22.0 Subsequent ST elevation (STEMI) myocardial infarction of anterior wall; I25.5 Ischemic cardiomyopathy; I10 Essential (primary) hypertension; Z95.818 Presence of other cardiac implants and grafts; I62.00 Nontraumatic subdural hemorrhage, unspecified
CPT/HCPCS: 93010; 99214

== ENCOUNTER → 2023-09-10 09:46 | Outpatient (BNVA) | payer MEDICARE, SELFPAY | PROVIDERS: Visit Provider Internal Medicine | DX: I48.0 Paroxysmal atrial fibrillation (principal); I25.2 Old myocardial infarction; I25.5 Ischemic cardiomyopathy; I10 Essential (primary) hypertension; I62.00 Nontraumatic subdural hemorrhage, unspecified; Z95.818 Presence of other cardiac implants and grafts | CPT/HCPCS: 93005; 99212 ==

== ENCOUNTER 2023-11-01 09:45 | Outpatient (AMB) | payer MEDICARE, SELFPAY ==
[2023-11-01 09:50] VITALS: BP 140/72; PULSE 65; O2SAT 97; BMI 26.7
--- NOTE | 2023-11-01 09:50 | A.OFFPC_ITS ---
Vital Signs 11/01/23 09:50 Height 5 ft 5 in Weight 160 lb 6 oz BMI 26.7 BP 140/72 H Blood Pressure Location Lt brachial Position Sitting Pulse 65 Pulse Source Pulse Oximeter Pulse Oximetry (%) 97 Oxygen Delivery Method Room Air Intake Visit Reasons: ischemic cardiomyopathy, PAF, hyperlipidemia Medical Review Specialist Required: No Accompanied by: Self / Same As Patient Allergies lisinopril [From ZESTRIL] Adverse Reaction (Intermediate, Verified 11/01/23 11:06) COUGH Medication List - Last Reconciled 11/01/23 by Jay Vasquez MD amlodipine 5 mg PO DAILY 90 days atorvastatin 80 mg PO DAILY 90 days lorazepam 1 mg PO DAILY PRN 30 days losartan 100 mg (2 x 50 mg) PO DAILY metoprolol succinate ER 25 mg PO BEDTIME multivitamin 1 tab PO DAILY Tobacco use date assessed: 11/01/23 Fall risk assessment: No Falls in past year Last assessed Fall Risk: 11/01/23 Dental Screening Dental Screen Date: 11/01/23 Did you have a dental visit in the last 12 months?: Yes Did you have a dental problem in the last 6 months where you did not have access to dental care?: No Was dental information given to patient?: Patient has dentist HPI ischemic cardiomyopathy, PAF, hyperlipidemia HPI Details Patient comes in today for her follow up visit States that she is still continuing to experience recurrent discomfort and sometimes pain in her right knee, especially over the back of the knee - notes that her knee symptoms tend to flare up as well after prolonged standing or increased activity and she is concerned as to whether her previous knee injury has healed up completely or not She apparently sustained a fracture in her tibia in addition to suffering a meniscal injury in her right knee back in January 2023, based on her MRI findings at the time but per orthopedics, she did not require surgery States that she feels okay otherwise She denies any headaches or dizziness Denies any chest pains, no SOB No nausea/vomiting, no abdominal pain No change in bowel habits noted She was not able to get her follow up labs done prior to her appointment today - states that she will try to get them done early next Saturday [facility] Medical History Overweight (BMI 25.0-29.9) Osteopenia Presence of Watchman left atrial appendage closure device Anxiety Benign essential hypertension Status post insertion of drug-eluting stent into left anterior descending (LAD) artery (~11/29/20) ST elevation myocardial infarction (STEMI) of anterior wall Subdural hemorrhage halfway (current) use of anticoagulants Essential hypertension PAF (paroxysmal atrial fibrillation) Surgical History S/P craniotomy (~06/2021) History of cardiac catheterization (~11/29/20) History of total left knee replacement (~2018) Family History Father Myocardial infarction Mother HTN (hypertension) Social History Housing: House Alcohol intake: current Alcohol intake frequency: holidays/special occasions only Patient Tobacco Use Status: Never used Tobacco e-Cigarette/Vaping Use: Never Used Second Hand Smoke Exposure: No service: No Current occupational status: retired Cognitive needs: No Hearing needs: Yes Vision needs: Yes Questionnaire PHQ-9 Over the last 2 weeks, how often have you been bothered by any of the following problems? 1. Little interest or pleasure in doing things: not at all 2. Feeling down, depressed, or hopeless: not at all 3. Trouble falling or staying asleep, or sleeping too much: not at all 4. Feeling tired or having little energy: not at all 5. Poor appetite or overeating: not at all 6. Feeling bad about yourself - or that you are a failure or have let yourself or your family down: not at all 7. Trouble concentrating on things, such as reading the newspaper or watching television: not at all 8. Moving or speaking so slowly that other people could have noticed. Or the opposite - being so fidgety or restless that you have been moving around a lot more than usual: not at all 9. Thoughts that you would be better off or of hurting yourself in some way: not at all Total score: 0 Depression Screening Interpretation: Negative Depression Screening Done: Yes 95054 - PHQ-9 Billing: Yes Source: Developed by Drs. Blaze Tariq, Concetta B.WErnesto Phelps and colleagues, with an educational regla from [employer]. Thrive Questionnaire Date Thrive assessed: 11/01/23 I am a: Patient What is your living situation today?: I have a steady place to live Within the past 12 months, did the food you bought not last and you didn't have the money to get more?: Never true Within the past 12 months, did you worry whether your food would run out before you got money to buy more?: Never true Do you have trouble paying for medicines?: No Do you have trouble getting transportation to medical appointments?: No Do you have trouble paying your heating and electricity bill?: No Do you have trouble taking care of your child, family member or friend?: No Do you have trouble with day-to-day activities such as bathing, preparing meals, shopping, managing finances, etc.?: No Are you currently unemployed and looking for a job?: No Are you interested in more education?: No Please select the resources that you would like help with: None Currently or been in a relationship where the following occur: no concerns reported THRIVE Score: 0 AUDIT C Alcohol Use Questionnaire (AUDIT-C) 1. How often do you have a drink containing alcohol?: Never 3. How often do you have six or more drinks on one occasion?: Never Total Score: 0 Score Reviewed/Action Taken: Yes MAXIMILIAN-7 AMB Questionnaire MAXIMILIAN-7 Date MAXIMILIAN - 7 assessed: 11/01/23 Feeling nervous, anxious, or on edge: 0 = Not at all Not being able to stop or control worryin = Not at all Worrying too much about different things: 0 = Not at all Trouble relaxin = Not at all Being so restless that it is hard to sit still: 0 = Not at all Becoming easily annoyed or irritable: 0 = Not at all Feeling afraid as if something awful might happen: 0 = Not at all Total MAXIMILIAN-7 score (0-4 normal; 5-9 mild; 10-14 moderate; 15-21 severe): 0 Source: Developed by Drs. Blaze Tariq, Ernesto Johnston and colleagues, with an educational regla from [employer]. MAXIMILIAN-7 Assessment Billing MAXIMILIAN-7 Assessment Tool: MAXIMILIAN-7 Assessment 32756 Review of Systems Const Denies chills, Denies fatigue, Denies fever(s) and Denies headache(s) ENT Denies dysphagia, Denies dizziness, Denies otalgia, Denies headache(s), Denies neck pain, Denies odynophagia and Denies sore throat Card Denies chest pain, Denies palpitations and Denies dyspnea Resp Denies cough and Denies dyspnea GI Denies abdominal pain, Denies constipation, Denies dysphagia, Denies heartburn, Denies diarrhea, Denies nausea, Denies odynophagia and Denies vomiting Denies difficulty voiding, Denies nocturia, Denies dysuria and Denies urinary urgency Musc Reports abnormal gait (unsteady gait), Reports arthralgias (on and off, in the right knee, especially over the anteromedial aspect), Denies joint swelling and Denies neck pain Skin/Breast Denies rash Neuro Reports abnormal gait (unsteady gait), Denies dizziness, Denies headache(s) and Reports memory loss (recent) Psych Reports memory loss (recent) Endo Denies fatigue and Denies palpitations Physical exam (Primary Care) Vital Signs: Last Vital Signs Pulse 65 11/01/23 09:50 BP 140/72 H 11/01/23 09:50 Pulse Ox 97 11/01/23 09:50 Oxygen Delivery Method Room Air 11/01/23 09:50 BMI result Body Mass Index 26.7 Tobacco/Smoking Status: Tobacco use Status Tobacco use date assessed 11/01/23 11/01/23 09:55 Patient Tobacco Use Status Never used Tobacco 11/01/23 09:50 e-Cigarette/Vaping Use Never Used 11/01/23 09:50 PHQ-9: PHQ-9 Score PHQ-9: Total score 0 11/01/23 10:03 Depression Screening Interpretation: Negative Thrive Assessment: Date of Thrive Assessment Date Thrive assessed 11/01/23 11/01/23 10:03 Currently or been in a relationship where the following occur: no concerns reported Const General: no acute distress and alert HENMT Throat: Yes posterior oropharynx normal and Yes tonsils normal (no TP congestion) Neck Neck: Yes no lymphadenopathy, Yes supple and Yes no JVD Resp Auscultation: clear to auscultation bilaterally, no rales and no wheezes Cardio Rate: regular rate Rhythm: regular rhythm Heart sounds: no murmurs GI Palpation (GI): Soft to palpation and nontender Auscultation: normal bowel sounds General: Yes no CVA tenderness Back/Spine/Pelvis Back: no CVA tenderness Skin Rashes: no rashes Extrem General: Yes no clubbing, cyanosis or edema Right lower extremity: knee Details: tenderness Location: of the popliteal fossa and of the medial joint line; no swelling Assessment and Plan Assessment & Plan (1) Right knee pain: Code(s): M25.561 - Pain in right knee Qualifiers: Chronicity: unspecified Qualified Code(s): M25.561 - Pain in right knee Plan: Patient is advised again that this may be likely related to her meniscal injury and tibial fracture from a few months ago She fortunately did not require surgery (per orthopedics) although she seems to still be bothered by her recurrent knee symptoms lately Will send her for repeat right knee x-rays NICK for further evaluation - advised that she can get these done at the same time when she goes to get her labs done Follow up with orthopedics as scheduled (2) Presence of Watchman left atrial appendage closure device: Comment: performed in December 2021 Code(s): Z95.818 - Presence of other cardiac implants and grafts Plan: (+) successful occlusion of the left atrial appendage with a 24 mm Watchman FLX device in December 2021 Continue Aspirin 81 mg QD - will need to continue on low dose Aspirin lifetime (3) ST elevation myocardial infarction (STEMI) of anterior wall: Comment: S/P CHERYL to LAD in 11/2020 Code(s): I21.09 - ST elevation (STEMI) myocardial infarction involving other coronary artery of anterior wall Plan: Patient was not able to get her follow up labs done prior to her appointment today - states that she will try to get them done early next week Continue Atorvastatin 80 mg QD for aggressive risk factor modification and lifelong Aspirin 81 mg QD Follow up with cardiology as scheduled Will recheck her labs and fasting lipids in 4 months for follow up (4) Ischemic cardiomyopathy: Code(s): I25.5 - Ischemic cardiomyopathy Plan: Previous echocardiogram showed EF of 25 to 30% with some wall motion abnormalities in the LAD territory Repeat echo done at [facility] in 08/2021 showed (+) improvement, with NORMAL LV systolic function and EF = 67% Continue Metoprolol ER 25 mg QD She was on low dose (20 mg) Furosemide daily for her pedal edema and SOB in the past but has not taken this in a while now States that her symptoms have improved significantly since she had her Watchman device inserted back in 12/2021 (5) PAF (paroxysmal atrial fibrillation): Code(s): I48.0 - Paroxysmal atrial fibrillation Plan: Was on Xarelto 20 mg QD (for thromboembolism prophylaxis) in addition to her Clopidogrel when she developed brain hemorrhage in 06/2021, requiring emergent craniotomy and drainage as well as infusion of Prothrombin complex concentrate and Tranexamic Acid Xarelto was stopped and patient was continued on Clopidogrel and Aspirin; Clopidogrel was discontinued in mid-June 2022 as planned 6 months following her Watchman device placement Follow up with cardiology as scheduled (6) Subdural hemorrhage: Code(s): I62.00 - Nontraumatic subdural hemorrhage, unspecified Plan: Has no residual neurologic deficits except for minimal right upper extremity weakness Still reports feeling weak and gets tired very easily at times but is able to walk and ambulate on her own Neurosurgery recommends no routine follow up; only PRN (7) Memory impairment: Code(s): R41.3 - Other amnesia Plan: She has been referred to and was seen by neurology earlier this year in July 2023 Was diagnosed with MCI and was sent for repeat head CT (done in 2023) which revealed (+) diffuse volume loss and chronic microvascular ischemic changes and lacunar infarcts as well as sequela of a left temporofrontal craniotomy Vitamin B12 level was normal (8) Benign essential hypertension: Code(s): I10 - Essential (primary) hypertension Plan: Reinforced low sodium diet - goal is systolic BP of at least 130 to 140 mm or less States that her BP readings at home remains normal and that her blood pressure seems to go up whenever she comes into the office BP was 140/72 today Continue Amlodipine 5 mg QD, Metoprolol ER 25 mg QD and Losartan 50 mg BID (9) Osteopenia: Code(s): M85.80 - Other specified disorders of bone density and structure, unspecified site Qualifiers: Osteopenia location: unspecified Qualified Code(s): M85.80 - Other specified disorders of bone density and structure, unspecified site Plan: Her BMD done back in October 2022 revealed (+) osteopenia based on the lowest T- score value of -2.2 in the femoral neck This serves as her baseline exam as there are no other BMDs available in her chart for review Reinforced fall precautions and she is advised to continue taking her oral Vitamin D and Calcium supplements daily (10) Left leg pain: Code(s): M79.605 - Pain in left leg Plan: States that her left leg has not been bothering her as much lately Patient advised again that her left leg pain is most likely due to neuropathy but her more recent symptoms also suggest possible RLS as well as mild OA (knee stiffness) She was on Gabapentin 100 mg Q HS previously but she came off her Rx a few months ago as instructed Discussed that we can start her back on Gabapentin (if she is willing to) if her symptoms are starting to bother her again more (11) Anxiety: Code(s): F41.9 - Anxiety disorder, unspecified Plan: Continue Lorazepam 1 mg QD PRN - Rx refilled Was started on Sertraline 25 mg Q AM a few months ago but patient did not continue on the Rx - prefers not to take anything else for now (12) Overweight (BMI 25.0-29.9): Code(s): E66.3 - Overweight Plan: Reinforced diet/exercise as tolerated/lose weight although she is having trouble walking lately due to her right knee issues and unsteady gait Plan Follow up in 4 months Orders: Orders Complete Blood Count Auto Diff 4 Months D64.9 - Anemia, unspecified Comprehensive [place]. Panel Fast 4 Months E78.00 - Pure hypercholesterolemia, unspecified Lipid Panel 4 Months E78.00 - Pure hypercholesterolemia, unspecified UA CC w/rflx Micro + Cult 4 Months R30.0 - Dysuria XR knee RT 4V Today M25.561 - Pain in right knee Coding Level of Care Code Est Pt Level 4 (27627) Diagnoses Right knee pain, unspecified chronicity M25.561 Chronicity: unspecified Presence of Watchman left atrial appendage closure device Z95.818 ST elevation myocardial infarction (STEMI) of anterior wall I21.09 Ischemic cardiomyopathy I25.5 PAF (paroxysmal atrial fibrillation) I48.0 Subdural hemorrhage I62.00 Memory impairment R41.3 Benign essential hypertension I10 Osteopenia, unspecified location M85.80 Osteopenia location: unspecified Left leg pain M79.605 Anxiety F41.9 Overweight (BMI 25.0-29.9) E66.3 Additional Codes MAXIMILIAN-7 Assessment Billing - MAXIMILIAN-7 Assessment Tool: MAXIMILIAN-7 Assessment [id number] ([id number])
== END 2023-11-01 10:59 | disposition home or self-care (01) ==
PROVIDERS: PCP Internal Medicine; Visit Provider Internal Medicine
DX: M25.561 Pain in right knee (principal); I48.0 Paroxysmal atrial fibrillation; I62.00 Nontraumatic subdural hemorrhage, unspecified; I25.2 Old myocardial infarction; Z95.818 Presence of other cardiac implants and grafts; I25.5 Ischemic cardiomyopathy; R41.3 Other amnesia; I10 Essential (primary) hypertension; M85.80 Other specified disorders of bone density and structure, unspecified site; M79.605 Pain in left leg; F41.9 Anxiety disorder, unspecified; E66.3 Overweight
CPT/HCPCS: 99214

== ENCOUNTER 2023-11-04 07:34 | Outpatient (REF) | payer MEDICARE, SELFPAY ==
[2023-11-04 10:30] LABS: MANUAL DIFF FLAG NO
[2023-11-04 10:38] LABS: Basophils Absolute Auto 0.1 X10*3/uL (0.0-0.2); Eosinophils Absolute Auto 0.2 X10*3/uL (0.0-0.4); Hematocrit 40.3 % (37.0-47.0); Hemoglobin 13.7 g/dl (12.0-16.0); Imm Gran Abs Auto 0.02 X10*3/uL (0.00-0.03); Imm Gran Pct Auto 0.4 % (0.0-0.4); Lymphocytes Absolute Auto 1.6 X10*3/uL (1.2-4.9); Lymphocytes Percent Auto 30.1 % (20-40); Mean Corpuscular Hemoglobin 32.6 pg (27.0-33.0); Mean Platelet Volume 11.4 fL (9.4-12.3); Monocytes Absolute Auto 0.6 X10*3/uL (0.1-1.2); Monocytes Percent Auto 11.4 % (2-11); Neutrophils Absolute Auto 2.8 x10*3/uL (2.0-8.3); Neutrophils Percent Auto 53.1 % (45-73); Platelet Count 194 X10*3/uL (160-400); Red Cell Distribution Width 13.2 % (11.0-16.0); White Blood Count 5.3 X10*3/uL (4.8-10.8)
[2023-11-04 10:45] LABS: Estimated Average Glucose 114 mg/dL; Hemoglobin A1c % 5.6 % (<6.0)
[2023-11-04 10:47] LABS: Appearance Urine Clear; Color Urine Yellow; Glucose Urine UA Negative (Negative); Leukocyte Esterase Urine Moderate (2+) (Negative); Nitrite Urine Negative (Negative); PH 5.5 (5.0-9.0); Specific Gravity - Urine 1.015 (1.005-1.025); UMIC TRIGGER UACC YES; Urine Blood Negative (Negative); Urine Ketones Negative (Negative); Urine Protein Negative (Neg-Trace)
[2023-11-04 10:55] LABS: Bacteria Urine Trace (None Seen); Hyaline Casts Urine 0-2 /LPF (0-2); RBC Urine 0-2 /HPF (0-2); UACC Culture Trigger YES
[2023-11-04 11:42] LABS: Alanine Aminotransferase 36 U/L (0-31); Alkaline Phosphatase 66 U/L (39-117); Anion Gap 11 (12-20); Aspartate Amino Transferase 39 U/L (5-31); Blood Urea Nitrogen 17 mg/dL (9-16); Calcium 9.5 mg/dL (8.4-10.2); Carbon Dioxide 26 mmol/L (22-29); Chloride 109 mmol/L (96-108); Cholesterol 118 mg/dL (<200); Estimated Glomerular Filt Rate > 60; Glucose Fasting 113 mg/dL (60-99); HDL Cholesterol 55 mg/dL (>40); LDL Cholesterol Calculated 47 mg/dL (<100); Sodium 142 mmol/L (135-145); Total Protein 6.6 g/dL (6.5-8.0); Triglycerides 84 mg/dL (<150)
[2023-11-04 11:46] LABS: TSH reflex Free T4 1.94 uIU/mL (0.32-4.0); Vitamin D 25-OH Total 45.9 ng/mL (>30)
== END 2023-11-04 07:35 | disposition home or self-care (01) ==
LOC: HO.HMGCLDS 07:34
PROVIDERS: PCP Internal Medicine; Visit Provider Internal Medicine
DX: I10 Essential (primary) hypertension (principal); E55.9 Vitamin D deficiency, unspecified; E78.00 Pure hypercholesterolemia, unspecified; R73.01 Impaired fasting glucose; R30.0 Dysuria
CPT/HCPCS: 36415; 80053; 80061; 81001; 82306; 83036; 84443; 85025; 87086

== ENCOUNTER 2023-11-08 15:07 | Outpatient (REF) | payer MEDICARE, SELFPAY ==
--- NOTE | ~2023-11-08 | XR_ITS ---
EXAMINATION: XR KNEE, RIGHT CLINICAL INFORMATION: Reason for Exam M25.561 - Pain in right knee COMPARISON: None TECHNIQUE: 4 views of the knee FINDINGS: No acute fracture or dislocation. Moderate degenerative changes of the knee with loss of medial compartment joint space. No joint effusion. Atherosclerotic vascular calcification. XR/XR knee RT 4V IMPRESSION: * No acute osseous abnormality. * Moderate degenerative changes of the knee.
== END 2023-11-08 15:08 | disposition home or self-care (01) ==
LOC: HO.HMGCX 15:07
PROVIDERS: PCP Internal Medicine; Visit Provider Internal Medicine
DX: M25.561 Pain in right knee (principal)
CPT/HCPCS: 73564

== ENCOUNTER 2024-04-03 09:51 | Outpatient (AMB) | payer MEDICARE, SELFPAY ==
--- NOTE | 2024-04-03 09:54 | A.OFFPC_ITS ---
Vital Signs 04/03/24 09:55 Height 5 ft 5 in Weight 160 lb 6 oz BMI 26.7 BP 132/84 Blood Pressure Location Lt brachial Position Sitting Pulse 69 Pulse Source Pulse Oximeter Pulse Oximetry (%) 96 Oxygen Delivery Method Room Air Intake Visit Reasons: 5 Month F/U - see comments Speaker Wirer Required: No Accompanied by: Self / Same As Patient Allergies lisinopril [From ZESTRIL] Adverse Reaction (Intermediate, Verified 04/03/24 10:42) COUGH Medication List - Last Reconciled 04/03/24 by Jay Vasquez MD amlodipine 5 mg PO DAILY 90 days aspirin 81 mg PO DAILY atorvastatin 80 mg PO DAILY 90 days lorazepam 1 mg PO DAILY PRN 30 days losartan 100 mg (2 x 50 mg) PO DAILY metoprolol succinate ER 25 mg PO BEDTIME multivitamin 1 tab PO DAILY Tobacco use date assessed: 04/03/24 Fall risk assessment: No Falls in past year Last assessed Fall Risk: 04/03/24 Dental Screening Dental Screen Date: 04/03/24 Did you have a dental visit in the last 12 months?: Yes Did you have a dental problem in the last 6 months where you did not have access to dental care?: No Was dental information given to patient?: Patient has dentist HPI 5 Month F/U - see comments HPI Details Patient comes in today for her follow up visit States that she feels okay She denies any headaches or dizziness Denies any chest pains, no SOB No nausea/vomiting, no abdominal pain No change in bowel habits noted States that her right knee still bothers her every now and then but she has been able to manage it - states that she is able to do most daily activities independently and that she is aware of her own limits She was not able to get her follow up labs done (forgot) prior to her appointment today [facility] Medical History Overweight (BMI 25.0-29.9) Osteopenia Presence of Watchman left atrial appendage closure device Anxiety Benign essential hypertension Status post insertion of drug-eluting stent into left anterior descending (LAD) artery (~11/29/20) ST elevation myocardial infarction (STEMI) of anterior wall Subdural hemorrhage snf (current) use of anticoagulants Essential hypertension PAF (paroxysmal atrial fibrillation) Surgical History S/P craniotomy (~06/2021) History of cardiac catheterization (~11/29/20) History of total left knee replacement (~2018) Family History Father Myocardial infarction Mother HTN (hypertension) Social History Housing: House Alcohol intake: current Alcohol intake frequency: holidays/special occasions only Patient Tobacco Use Status: Never used Tobacco e-Cigarette/Vaping Use: Never Used Second Hand Smoke Exposure: No service: No Current occupational status: retired Cognitive needs: No Hearing needs: Yes Vision needs: Yes Questionnaire PHQ-9 Over the last 2 weeks, how often have you been bothered by any of the following problems? 1. Little interest or pleasure in doing things: not at all 2. Feeling down, depressed, or hopeless: not at all 3. Trouble falling or staying asleep, or sleeping too much: not at all 4. Feeling tired or having little energy: not at all 5. Poor appetite or overeating: not at all 6. Feeling bad about yourself - or that you are a failure or have let yourself or your family down: not at all 7. Trouble concentrating on things, such as reading the newspaper or watching television: not at all 8. Moving or speaking so slowly that other people could have noticed. Or the opposite - being so fidgety or restless that you have been moving around a lot more than usual: not at all 9. Thoughts that you would be better off or of hurting yourself in some way: not at all Total score: 0 Depression Screening Interpretation: Negative Depression Screening Done: Yes 35988 - PHQ-9 Billing: Yes Source: Developed by Drs. Blaze Tariq, Concetta De Jesus, Ernesto Garber and colleagues, with an educational regla from [employer]. Thrive Questionnaire Date Thrive assessed: 04/03/24 I am a: Patient What is your living situation today?: I have a steady place to live Within the past 12 months, did the food you bought not last and you didn't have the money to get more?: Never true Within the past 12 months, did you worry whether your food would run out before you got money to buy more?: Never true Do you have trouble paying for medicines?: No Do you have trouble getting transportation to medical appointments?: No Do you have trouble paying your heating and electricity bill?: No Do you have trouble taking care of your child, family member or friend?: No Do you have trouble with day-to-day activities such as bathing, preparing meals, shopping, managing finances, etc.?: No Are you currently unemployed and looking for a job?: No Are you interested in more education?: No Please select the resources that you would like help with: None Currently or been in a relationship where the following occur: No concerns reported THRIVE Score: 0 AUDIT C Alcohol Use Questionnaire (AUDIT-C) 1. How often do you have a drink containing alcohol?: Never 3. How often do you have six or more drinks on one occasion?: Never Total Score: 0 Score Reviewed/Action Taken: Yes MAXIMILIAN-7 AMB Questionnaire MAXIMILIAN-7 Date MAXIMILIAN - 7 assessed: 04/03/24 Feeling nervous, anxious, or on edge: 0 = Not at all Not being able to stop or control worryin = Not at all Worrying too much about different things: 0 = Not at all Trouble relaxin = Not at all Being so restless that it is hard to sit still: 0 = Not at all Becoming easily annoyed or irritable: 0 = Not at all Feeling afraid as if something awful might happen: 0 = Not at all Total MAXIMILIAN-7 score (0-4 normal; 5-9 mild; 10-14 moderate; 15-21 severe): 0 Source: Developed by Drs. Blaze Tariq, Concetta De Jesus, Ernesto Garber and colleagues, with an educational regla from [employer]. MAXIMILIAN-7 Assessment Billing MAXIMILIAN-7 Assessment Tool: MAXIMILIAN-7 Assessment 25630 Review of Systems Const Denies difficulty sleeping, Denies fatigue, Denies fever(s) and Denies headache(s) ENT Denies dysphagia, Denies dizziness, Denies otalgia, Denies headache(s), Denies neck pain, Denies odynophagia and Denies sore throat Card Denies chest pain, Denies palpitations and Denies dyspnea Resp Denies chest congestion, Denies cough and Denies dyspnea GI Denies abdominal pain, Denies constipation, Denies dysphagia, Denies heartburn, Denies diarrhea, Denies nausea, Denies odynophagia and Denies vomiting Denies difficulty voiding, Denies nocturia, Denies dysuria and Denies urinary urgency Musc Denies back pain, Reports arthralgias (on and off, in the right knee), Denies joint swelling and Denies neck pain Skin/Breast Denies rash Neuro Denies dizziness, Denies headache(s) and Reports memory loss (recent) Psych Reports memory loss (recent) Endo Denies fatigue and Denies palpitations Physical exam (Primary Care) Vital Signs: Last Vital Signs Pulse 69 04/03/24 09:55 BP 132/84 04/03/24 09:55 Pulse Ox 96 04/03/24 09:55 Oxygen Delivery Method Room Air 04/03/24 09:55 BMI result Body Mass Index 26.7 Tobacco/Smoking Status: Tobacco use Status Tobacco use date assessed 04/03/24 04/03/24 10:02 Patient Tobacco Use Status Never used Tobacco 04/03/24 10:02 e-Cigarette/Vaping Use Never Used 04/03/24 10:02 PHQ-9: PHQ-9 Score PHQ-9: Total score 0 04/03/24 10:02 Depression Screening Interpretation: Negative Thrive Assessment: Date of Thrive Assessment Date Thrive assessed 04/03/24 04/03/24 10:02 Currently or been in a relationship where the following occur: No concerns reported Const General: no acute distress and alert HENMT Ears: TM's normal bilaterally and EAC's normal Throat: Yes posterior oropharynx normal and Yes tonsils normal (no TP congestion) Neck Neck: Yes no lymphadenopathy, Yes supple and Yes no JVD Thyroid: Thyroid normal Resp Auscultation: clear to auscultation bilaterally, no rales and no wheezes Cardio Rate: regular rate Rhythm: regular rhythm Heart sounds: no murmurs GI Palpation (GI): Soft to palpation and nontender Auscultation: normal bowel sounds General: Yes no CVA tenderness Back/Spine/Pelvis Back: no CVA tenderness Thoracic/Lumbar Spine: No lumbar spinal tenderness Skin Rashes: no rashes Extrem General: Yes no clubbing, cyanosis or edema Right lower extremity: knee Details: tenderness (mild) Location: of the medial joint line and normal ROM; no swelling Assessment and Plan Assessment & Plan (1) ST elevation myocardial infarction (STEMI) of anterior wall: Comment: S/P CHERYL to LAD in 11/2020 Code(s): I21.09 - ST elevation (STEMI) myocardial infarction involving other coronary artery of anterior wall Plan: Patient was again not able to get her follow up labs done prior to her appointment today Her cholesterol numbers were at goal on her most recent labs done in October 2023 - total cholesterol was at 118 mg/dl and LDL cholesterol was at 47 mg/dl Continue Atorvastatin 80 mg QD for aggressive risk factor modification Continue lifelong antiplatelet therapy with Aspirin 81 mg QD Follow up with cardiology as scheduled Will recheck her labs and fasting lipids in 4 months for follow up - will just have patient use her current orders (updated) for her next lab draw and orders are printed out and handed to patient to help remind her to get these done just BEFORE her next appointment (2) Presence of Watchman left atrial appendage closure device: Comment: performed in December 2021 Code(s): Z95.818 - Presence of other cardiac implants and grafts Plan: (+) successful occlusion of the left atrial appendage with a 24 mm Watchman FLX device in December 2021 Continue Aspirin 81 mg QD - will need to continue on low dose Aspirin lifetime (3) Ischemic cardiomyopathy: Code(s): I25.5 - Ischemic cardiomyopathy Plan: Previous echocardiogram showed EF of 25 to 30% with some wall motion abnormalities in the LAD territory [place] [facility] [place] showed (+) improvement, with NORMAL LV systolic function and EF = 67% Continue Metoprolol ER 25 mg QD She was on low dose (20 mg) Furosemide daily for her pedal edema and SOB in the past but has not taken this in a while now States that her symptoms have improved significantly since she had her Watchman device inserted back in 12/2021 (4) PAF (paroxysmal atrial fibrillation): Code(s): I48.0 - Paroxysmal atrial fibrillation Plan: She was on Xarelto 20 mg QD (for thromboembolism prophylaxis) in addition to her Clopidogrel when she developed brain hemorrhage in 06/2021, requiring emergent craniotomy and drainage as well as infusion of Prothrombin complex concentrate and Tranexamic Acid Xarelto was stopped and patient was continued on Clopidogrel and Aspirin; Clopidogrel was discontinued in mid-June 2022 as planned 6 months following her Watchman device placement Continue Metoprolol ER 25 mg QD Follow up with cardiology as scheduled (5) Subdural hemorrhage: Code(s): I62.00 - Nontraumatic subdural hemorrhage, unspecified Plan: Patient has no residual neurologic deficits except for minimal right upper extremity weakness Still reports feeling weak and gets tired easily at times but is able to walk and ambulate on her own; states that she is also independent with most ADLs Neurosurgery recommends no routine follow up; only PRN (6) Memory impairment: Code(s): R41.3 - Other amnesia Plan: She has been referred to and was seen by neurology earlier this year in July 2023 Was diagnosed with MCI and was sent for repeat head CT (done in 2023) which revealed (+) diffuse volume loss and chronic microvascular ischemic changes and lacunar infarcts as well as sequela of a left temporofrontal craniotomy Vitamin B12 level was normal (7) Benign essential hypertension: Code(s): I10 - Essential (primary) hypertension Plan: Reinforced low sodium diet - goal is systolic BP of at least 130 to 140 mm or less States that her BP readings at home are mostly normal and that her blood pressure seems to go up whenever she comes into the office BP was 132/84 today Continue Amlodipine 5 mg QD, Metoprolol ER 25 mg QD and Losartan 100 mg QD (8) Right knee pain: Code(s): M25.561 - Pain in right knee Qualifiers: Chronicity: unspecified Qualified Code(s): M25.561 - Pain in right knee Plan: Mostly due to osteoarthritis - right knee x-rays done a few months ago in November 2023 revealed (+) moderate degenerative changes of the knee Patient states that she has mostly been able to manage her knee pain and does not need anything for it right now Follow up with orthopedics as scheduled (9) Osteopenia: Code(s): M85.80 - Other specified disorders of bone density and structure, unspecified site Qualifiers: Osteopenia location: unspecified Qualified Code(s): M85.80 - Other specified disorders of bone density and structure, unspecified site Plan: Her BMD done back in October 2022 revealed (+) osteopenia based on the lowest T- score value of -2.2 in the femoral neck This serves as her baseline exam as there are no other BMDs available in her chart for review Reinforced fall precautions and she is advised to continue taking her oral Vitamin D and Calcium supplements daily (10) Left leg pain: Code(s): M79.605 - Pain in left leg Plan: States that her left leg has not been bothering her as much lately Patient advised again that her left leg pain is most likely due to neuropathy but her more recent symptoms also suggest possible RLS as well as mild OA (knee stiffness) She was on Gabapentin 100 mg Q HS previously but she came off her Rx a few months ago as instructed Discussed again that we can start her back on Gabapentin (if she is willing to) if her symptoms are starting to bother her again more (11) Anxiety: Code(s): F41.9 - Anxiety disorder, unspecified Plan: Continue Lorazepam 1 mg QD PRN She was previously started on Sertraline 25 mg Q AM a few months ago but patient did not continue on the Rx - prefers not to take anything else for now (12) Overweight (BMI 25.0-29.9): Code(s): E66.3 - Overweight Plan: Reinforced diet/exercise as tolerated/lose weight although she is having trouble walking lately due to her right knee issues and unsteady gait Plan Follow up in 4 months Orders: Orders TSH reflex Free T4 08/08/24 E78.00 - Pure hypercholesterolemia, unspecified Vitamin D 25-OH Total 08/08/24 E55.9 - Vitamin D deficiency, unspecified Coding Level of Care Code Est Pt Level 4 (47364) Diagnoses ST elevation myocardial infarction (STEMI) of anterior wall I21.09 Presence of Watchman left atrial appendage closure device Z95.818 Ischemic cardiomyopathy I25.5 PAF (paroxysmal atrial fibrillation) I48.0 Subdural hemorrhage I62.00 Memory impairment R41.3 Benign essential hypertension I10 Right knee pain, unspecified chronicity M25.561 Chronicity: unspecified Osteopenia, unspecified location M85.80 Osteopenia location: unspecified Left leg pain M79.605 Anxiety F41.9 Overweight (BMI 25.0-29.9) E66.3 Additional Codes MAXIMILIAN-7 Assessment Billing - MAXIMILIAN-7 Assessment Tool: MAXIMILIAN-7 Assessment 21744 ([id number])
[2024-04-03 09:55] VITALS: BP 132/84; PULSE 69; O2SAT 96; BMI 26.7
== END 2024-04-03 10:48 | disposition home or self-care (01) ==
PROVIDERS: PCP Internal Medicine; Visit Provider Internal Medicine
DX: I21.09 ST elevation (STEMI) myocardial infarction involving other coronary artery of anterior wall (principal); I48.0 Paroxysmal atrial fibrillation; I62.00 Nontraumatic subdural hemorrhage, unspecified; Z95.818 Presence of other cardiac implants and grafts; I25.5 Ischemic cardiomyopathy; R41.3 Other amnesia; I10 Essential (primary) hypertension; F41.9 Anxiety disorder, unspecified; M25.561 Pain in right knee; M85.80 Other specified disorders of bone density and structure, unspecified site; M79.605 Pain in left leg; E66.3 Overweight

== ENCOUNTER → 2024-04-03 09:51 | Outpatient (BNVA) | payer MEDICARE, SELFPAY | PROVIDERS: PCP Internal Medicine; Visit Provider Internal Medicine | DX: I21.09 ST elevation (STEMI) myocardial infarction involving other coronary artery of anterior wall (principal); I25.5 Ischemic cardiomyopathy; I48.0 Paroxysmal atrial fibrillation; I62.00 Nontraumatic subdural hemorrhage, unspecified; R41.3 Other amnesia; I10 Essential (primary) hypertension; M25.561 Pain in right knee; M85.80 Other specified disorders of bone density and structure, unspecified site; M79.605 Pain in left leg; F41.9 Anxiety disorder, unspecified; Z95.818 Presence of other cardiac implants and grafts | CPT/HCPCS: 96127; 99212 ==

== ENCOUNTER → 2024-05-04 18:05 | Outpatient (BNV) | payer MEDICARE, SELFPAY | PROVIDERS: PCP Internal Medicine; Visit Provider Radiology Diagnostic Radiology | DX: G30.9 Alzheimer's disease, unspecified (principal) | CPT/HCPCS: 70551 ==

== ENCOUNTER 2024-05-04 18:32 | Outpatient (REF) | payer MEDICARE, SELFPAY ==
--- NOTE | ~2024-05-04 | MR_ITS ---
EXAMINATION: MR BRAIN WITHOUT CONTRAST CLINICAL INFORMATION: Memory impairment. COMPARISON: No prior MR. CT head 08/15/2023, 06/26/2016. TECHNIQUE: MRI of the brain was obtained using routine sequences without contrast. Examination performed on a 1.5 Sarah Siemens magnet. FINDINGS: There is no diffusion restriction. There is no intracranial hemorrhage, acute infarction, mass effect, or edema. Ventricles, sulci, and cisterns are normal in size and configuration for patient age. No unusual patterns of atrophy. No shift of midline. No abnormal hemosiderin deposition is identified. Mildly prominent perivenous spaces noted in the inferior basal ganglial regions. There are a numerous scattered punctate and minimally confluent foci of white matter T2 hyperintensity in the periventricular, subcortical, and hemispheric deep white matter, nonspecific, but most likely sequela small vessel ischemia. These do not have a morphology suggestive of inflammatory demyelination. Midline structures appear normally formed. The sella appears normal. Posterior fossa structures appear normal. Cerebellar tonsils are appropriately located. Major flow voids are preserved within the skull base. The globes and orbital contents demonstrate no abnormalities. Paranasal sinuses are clear bilaterally. Nasal septum is midline without spur. The mastoids and tympanic cavities are normally aerated. Extracranial soft tissues demonstrate no abnormalities. No suspicious bone marrow changes are evident. There has been a left pterional craniotomy. Atlantoaxial joint is normal. MR/MR head/brain wo con IMPRESSION: 1. No intracranial hemorrhage, acute infarction, mass effect, or edema. 2. Pows-so-zsmowsmz changes of small vessel ischemia. 3. Age-related cerebral and cerebellar involutional changes without asymmetrical pattern of atrophy. 4. Old left frontal pterional craniotomy. Electronically signed by: Lei Collazo MD 06/09/2024 09:07 AM EST
== END 2024-05-04 18:33 | disposition home or self-care (01) ==
LOC: HO.MRI 18:32
PROVIDERS: PCP Internal Medicine; Visit Provider Psychiatry & Neurology Neurology
DX: G30.9 Alzheimer's disease, unspecified (principal)
CPT/HCPCS: 70551

== ENCOUNTER 2024-08-29 07:38 | Outpatient (REF) | payer MEDICARE, SELFPAY ==
[2024-08-29 11:18] LABS: MANUAL DIFF FLAG NO
[2024-08-29 11:29] LABS: Basophils Percent Auto 0.6 % (0-2); Eosinophils Absolute Auto 0.2 X10*3/uL (0.0-0.4); Eosinophils Percent Auto 3.5 % (0-4); Hematocrit 41.5 % (37.0-47.0); Imm Gran Abs Auto 0.01 X10*3/uL (0.00-0.03); Imm Gran Pct Auto 0.2 % (0.0-0.4); Lymphocytes Absolute Auto 1.3 X10*3/uL (1.2-4.9); Lymphocytes Percent Auto 20.8 % (20-40); Mean Corpuscular HGB Conc 33.7 g/dl (31.0-35.0); Mean Corpuscular Hemoglobin 32.3 pg (27.0-33.0); Mean Corpuscular Volume 95.6 fL (80.0-98.0); Mean Platelet Volume 11.5 fL (9.4-12.3); Monocytes Absolute Auto 0.6 X10*3/uL (0.1-1.2); Monocytes Percent Auto 9.8 % (2-11); Neutrophils Absolute Auto 4.1 x10*3/uL (2.0-8.3); Neutrophils Percent Auto 65.1 % (45-73); Platelet Count 198 X10*3/uL (160-400); Red Blood Count 4.34 X10*6/uL (4.20-5.50); Red Cell Distribution Width 13.2 % (11.0-16.0); White Blood Count 6.2 X10*3/uL (4.8-10.8)
[2024-08-29 11:34] LABS: Appearance Urine Clear; Color Urine Yellow; Glucose Urine UA Negative (Negative); Leukocyte Esterase Urine Small (1+) (Negative); Nitrite Urine Negative (Negative); PH 5.5 (5.0-9.0); Specific Gravity - Urine 1.015 (1.005-1.025); UMIC TRIGGER UACC YES; Urine Blood Trace (Negative); Urine Ketones Negative (Negative); Urine Protein Negative (Neg-Trace)
[2024-08-29 11:40] LABS: Bacteria Urine Trace (None Seen); Hyaline Casts Urine 0-2 /LPF (0-2); RBC Urine 0-2 /HPF (0-2); UACC Culture Trigger YES
[2024-08-29 12:07] LABS: Alanine Aminotransferase 38 U/L (0-31); Alkaline Phosphatase 68 U/L (39-117); Anion Gap 11 (12-20); Aspartate Amino Transferase 36 U/L (5-31); Blood Urea Nitrogen 13 mg/dL (9-16); Calcium 9.7 mg/dL (8.4-10.2); Carbon Dioxide 26 mmol/L (22-29); Chloride 110 mmol/L (96-108); Cholesterol 124 mg/dL (<200); Estimated Glomerular Filt Rate > 60; Glucose Fasting 110 mg/dL (60-99); HDL Cholesterol 58 mg/dL (>40); LDL Cholesterol Calculated 50 mg/dL (<100); Potassium 3.7 mmol/L (3.3-5.1); Sodium 143 mmol/L (135-145); TSH reflex Free T4 2.16 uIU/mL (0.32-4.0); Triglycerides 83 mg/dL (<150); Vitamin D 25-OH Total 49.4 ng/mL (>30)
== END 2024-08-29 07:39 | disposition home or self-care (01) ==
LOC: HO.HMGCLDS 07:38
PROVIDERS: PCP Internal Medicine; Visit Provider Internal Medicine
DX: D64.9 Anemia, unspecified (principal); E55.9 Vitamin D deficiency, unspecified; E78.00 Pure hypercholesterolemia, unspecified; R30.0 Dysuria
CPT/HCPCS: 36415; 80053; 80061; 81001; 82306; 84443; 85025; 87086

== ENCOUNTER 2024-09-10 10:06 | Outpatient (AMB) | payer MEDICARE, SELFPAY ==
--- NOTE | 2024-09-10 10:15 | MHC.OFFVIS ---
Vital Signs 09/10/24 10:16 Height 5 ft 5 in Weight 158 lb 4.67 oz BMI 26.3 BP 120/70 Blood Pressure Location Lt brachial Position Sitting Pulse 62 Pulse Source Monitor Intake Visit Reasons: 1 yr f/up Automatic Presser Required: No Accompanied by: Self / Same As Patient Allergies lisinopril [From ZESTRIL] Adverse Reaction (Intermediate, Verified 04/03/24 10:42) COUGH Medication List - Last Reconciled 09/10/24 by Petar Manley MD amlodipine 5 mg PO DAILY 90 days aspirin 81 mg PO DAILY atorvastatin 80 mg PO DAILY 90 days donepezil 5 mg PO BEDTIME lorazepam 1 mg PO DAILY PRN 30 days losartan 100 mg (2 x 50 mg) PO DAILY metoprolol succinate ER 25 mg PO BEDTIME multivitamin 1 tab PO DAILY HPI Comments Details: Cathryn returns for follow-up. To recall, she had STEMI in 2020. Status post LAD stenting. In 2020, she had subdural hemorrhage and underwent craniotomy for the same. She was previously on Xarelto, but then underwent Watchman procedure. Overall, she states she feels good. No cardiac symptoms whatsoever. [facility], [facility] Medical History Overweight (BMI 25.0-29.9) Osteopenia Presence of Watchman left atrial appendage closure device Anxiety Benign essential hypertension Status post insertion of drug-eluting stent into left anterior descending (LAD) artery (~11/29/20) ST elevation myocardial infarction (STEMI) of anterior wall Subdural hemorrhage senior living (current) use of anticoagulants Essential hypertension PAF (paroxysmal atrial fibrillation) Surgical History S/P craniotomy (~06/2021) History of cardiac catheterization (~11/29/20) History of total left knee replacement (~2018) Family History Father Myocardial infarction Mother HTN (hypertension) Social History Housing: House Alcohol intake: current Alcohol intake frequency: holidays/special occasions only Patient Tobacco Use Status: Never used Tobacco e-Cigarette/Vaping Use: Never Used Second Hand Smoke Exposure: No service: No Current occupational status: retired Cognitive needs: No Hearing needs: Yes Vision needs: Yes Review of Systems Const Denies chills, Denies fatigue, Denies fever(s), Denies frequent falls, Denies weakness, Denies weight gain and Denies weight loss ENT Denies dizziness Card Denies chest pain, Denies leg edema, Denies lightheadedness, Denies palpitations, Denies dyspnea and Denies dyspnea on exertion Resp Denies cough, Denies dyspnea and Denies dyspnea on exertion GI Denies hematochezia Musc Denies abnormal gait, Denies muscle weakness, Denies numbness, Denies radiating pain into limb and Denies tingling Neuro Denies abnormal gait, Denies dizziness, Denies frequent falls, Denies numbness, Denies tingling and Denies weakness Endo Denies fatigue and Denies palpitations Physical Exam Vital Signs: Last Vital Signs Pulse 62 09/10/24 10:16 BP 120/70 09/10/24 10:16 BMI result Body Mass Index 26.3 Const General: comfortable and no acute distress Orientation/consciousness: patient oriented x3 HEENT Other: Unremarkable Head: Yes normal to inspection Neck Neck: Yes normal visual inspection Chest Chest palpation & inspection: normal inspection of the chest Resp Auscultation: clear to auscultation bilaterally Cardio Palpation: normal PMI Heart sounds: S1 normal heart sound present, S2 normal heart sound present, no gallops, no murmurs and no rubs GI Palpation (GI): Soft to palpation Back/Spine/Pelvis Other: unremarkable Skin General skin exam: no rashes or lesions noted Neuro General: patient oriented x3 Extrem General: Yes normal to inspection Psych Mental Status: mental status grossly normal Office Procedures EKG Details: EKG with underlying sinus rhythm at 62/Min; cannot exclude old septal infarct but could also be from body habitus; [place]. [id number], Complete Assessment & Plan Assessment & Plan (1) PAF (paroxysmal atrial fibrillation): Code(s): I48.0 - Paroxysmal atrial fibrillation Category: Medical Plan: Continue beta-blockers. Used to be on Xarelto but now status post Watchman device. Continue low-dose aspirin. No recent issues. (2) Subsequent ST elevation (STEMI) myocardial infarction of anterior wall: Code(s): I22.0 - Subsequent ST elevation (STEMI) myocardial infarction of anterior wall Category: Medical Plan: Cardiac catheterization reviewed from 11/2020. She had 99% stenosis in the mid LAD and 75% stenosis in the distal LAD. 60% stenosis in the OM2. RCA was normal. Status post PCI to mid LAD. She remains on aspirin, beta-blockers, statins. Cholesterol is well controlled. (3) Ischemic cardiomyopathy: Code(s): I25.5 - Ischemic cardiomyopathy Category: Medical Plan: LVEF has normalized on last echocardiogram. (4) Essential hypertension: Code(s): I10 - Essential (primary) hypertension Category: Medical Plan: On losartan/amlodipine. (5) Presence of Watchman left atrial appendage closure device: Comment: performed in December 2021 Code(s): Z95.818 - Presence of other cardiac implants and grafts Category: Medical Plan: Long-term aspirin. (6) Subdural hemorrhage: Code(s): I62.00 - Nontraumatic subdural hemorrhage, unspecified Category: Medical Plan: Recovered completely. No neurological deficits. Medications: Refilled amlodipine 5 mg PO DAILY 90 tabs 3RF 90 days Coding Level of Care Code Est Pt Level 4 (52898) Complex EM visit Add On G2211 Diagnoses PAF (paroxysmal atrial fibrillation) I48.[address] elevation (STEMI) myocardial infarction of anterior wall I22.0 Ischemic cardiomyopathy I25.5 Essential hypertension I10 Presence of Watchman left atrial appendage closure device Z95.818 Subdural hemorrhage I62.00 CPT Codes EKG - CPT: 60536-[id number], Complete ([id number])
[2024-09-10 10:16] VITALS: BP 120/70; PULSE 62; BMI 26.3
== END 2024-09-10 10:36 | disposition home or self-care (01) ==
PROVIDERS: PCP Internal Medicine; Visit Provider Internal Medicine
DX: I48.0 Paroxysmal atrial fibrillation (principal); I22.0 Subsequent ST elevation (STEMI) myocardial infarction of anterior wall; I25.5 Ischemic cardiomyopathy; I10 Essential (primary) hypertension; Z95.818 Presence of other cardiac implants and grafts; I62.00 Nontraumatic subdural hemorrhage, unspecified
CPT/HCPCS: 93010; 99214; G2211

== ENCOUNTER → 2024-09-10 10:06 | Outpatient (BNVA) | payer MEDICARE, SELFPAY | PROVIDERS: PCP Internal Medicine; Visit Provider Internal Medicine | DX: I48.0 Paroxysmal atrial fibrillation (principal); I22.0 Subsequent ST elevation (STEMI) myocardial infarction of anterior wall; I25.5 Ischemic cardiomyopathy; I10 Essential (primary) hypertension; I62.00 Nontraumatic subdural hemorrhage, unspecified; Z95.818 Presence of other cardiac implants and grafts; R94.31 Abnormal electrocardiogram [ECG] [EKG] | CPT/HCPCS: 93005; 99212 ==

== ENCOUNTER 2025-01-22 14:16 | Outpatient (AMB) | payer MEDICARE, SELFPAY ==
[2025-01-22 14:17] VITALS: BP 138/66; PULSE 76; O2SAT 97; BMI 26.5
--- NOTE | 2025-01-22 14:17 | A.OFFPC_ITS ---
Vital Signs 01/22/25 14:17 Height 5 ft 5 in Weight 159 lb BMI 26.5 BP 138/66 Blood Pressure Location Lt brachial Position Sitting Pulse 76 Pulse Source Pulse Oximeter Pulse Oximetry (%) 97 Oxygen Delivery Method Room Air Intake Visit Reasons: 6 month f/u Base Draw Operator Required: No Accompanied by: Self / Same As Patient Allergies lisinopril (From ZESTRIL) Adverse Reaction (Intermediate, Verified 01/22/25 14:40) COUGH Medication List - Last Reconciled 01/22/25 by Jay Vasquez MD amlodipine 5 mg PO DAILY 90 days aspirin 81 mg PO DAILY atorvastatin 80 mg PO DAILY donepezil 5 mg PO BEDTIME lorazepam 1 mg PO DAILY PRN 30 days losartan 100 mg (2 x 50 mg) PO DAILY metoprolol succinate ER 25 mg PO BEDTIME multivitamin 1 tab PO DAILY Tobacco use date assessed: 01/22/25 Fall risk assessment: No Falls in past year Last assessed Fall Risk: 01/22/25 Dental Screening Dental Screen Date: 01/22/25 Did you have a dental visit in the last 12 months?: Yes Did you have a dental problem in the last 6 months where you did not have access to dental care?: No Was dental information given to patient?: Patient has dentist HPI 6 month f/u HPI Details Patient comes in today for her follow up visit States that she feels okay She denies any headaches or dizziness Denies any chest pains, no SOB No nausea/vomiting, no abdominal pain No change in bowel habits noted She has no follow up labs done lately but recalls getting labs done back in August 2024 States that her previous appointment in September 2024 was rescheduled by the office to today [facility] Medical History (Updated 01/24/25 @ 09:35 by Jay Vasquez MD) Primary osteoarthritis of right knee Overweight (BMI 25.0-29.9) Osteopenia Presence of Watchman left atrial appendage closure device Anxiety Benign essential hypertension Status post insertion of drug-eluting stent into left anterior descending (LAD) artery (~11/29/20) ST elevation myocardial infarction (STEMI) of anterior wall Subdural hemorrhage senior care (current) use of anticoagulants Essential hypertension PAF (paroxysmal atrial fibrillation) Surgical History S/P craniotomy (~06/2021) History of cardiac catheterization (~11/29/20) History of total left knee replacement (~2018) Family History Father Myocardial infarction Mother HTN (hypertension) Social History Housing: House Alcohol intake: current Alcohol intake frequency: holidays/special occasions only Patient Tobacco Use Status: Never used Tobacco e-Cigarette/Vaping Use: Never Used Second Hand Smoke Exposure: No service: No Current occupational status: retired Current occupational exposures/hazards: No Cognitive needs: No Hearing needs: Yes Vision needs: Yes Questionnaire PHQ-9 Over the last 2 weeks, how often have you been bothered by any of the following problems? 1. Little interest or pleasure in doing things: not at all 2. Feeling down, depressed, or hopeless: not at all 3. Trouble falling or staying asleep, or sleeping too much: not at all 4. Feeling tired or having little energy: not at all 5. Poor appetite or overeating: not at all 6. Feeling bad about yourself - or that you are a failure or have let yourself or your family down: not at all 7. Trouble concentrating on things, such as reading the newspaper or watching television: not at all 8. Moving or speaking so slowly that other people could have noticed. Or the opposite - being so fidgety or restless that you have been moving around a lot more than usual: not at all 9. Thoughts that you would be better off or of hurting yourself in some way: not at all Total score: 0 Depression Screening Interpretation: Negative Depression Screening Done: Yes 85465 - PHQ-9 Billing: Yes Source: Developed by Drs. Blaze Tariq, Concetta De Jesus, Ernesto Gabrer and colleagues, with an educational regla from [employer]. Thrive Questionnaire Date Thrive assessed: 01/22/25 I am a: Patient What is your living situation today?: I have a steady place to live Within the past 12 months, did the food you bought not last and you didn't have the money to get more?: Never true Within the past 12 months, did you worry whether your food would run out before you got money to buy more?: Never true Do you have trouble paying for medicines?: No Do you have trouble getting transportation to medical appointments?: No Do you have trouble paying your heating and electricity bill?: No Do you have trouble taking care of your child, family member or friend?: No Do you have trouble with day-to-day activities such as bathing, preparing meals, shopping, managing finances, etc.?: No Are you currently unemployed and looking for a job?: No Are you interested in more education?: No Please select the resources that you would like help with: None Currently or been in a relationship where the following occur: No concerns reported THRIVE Score: 0 AUDIT C Alcohol Use Questionnaire (AUDIT-C) 1. How often do you have a drink containing alcohol?: Never 3. How often do you have six or more drinks on one occasion?: Never Total Score: 0 Score Reviewed/Action Taken: Yes MAXIMILIAN-7 AMB Questionnaire MAXIMILIAN-7 Date MAXIMILIAN - 7 assessed: 01/22/25 Feeling nervous, anxious, or on edge: 0 = Not at all Not being able to stop or control worryin = Not at all Worrying too much about different things: 0 = Not at all Trouble relaxin = Not at all Being so restless that it is hard to sit still: 0 = Not at all Becoming easily annoyed or irritable: 0 = Not at all Feeling afraid as if something awful might happen: 0 = Not at all Total MAXIMILIAN-7 score (0-4 normal; 5-9 mild; 10-14 moderate; 15-21 severe): 0 Source: Developed by Drs. Blaze Tariq, Concetta De Jesus, Ernesto Garber and colleagues, with an educational regla from [employer]. MAXIMILIAN-7 Assessment Billing MAXIMILIAN-7 Assessment Tool: MAXIMILIAN-7 Assessment 56372 Review of Systems Const Denies difficulty sleeping, Denies fatigue, Denies fever(s) and Denies headache(s) ENT Denies dysphagia, Denies dizziness, Denies otalgia, Denies headache(s), Denies neck pain, Denies odynophagia and Denies sore throat Card Denies chest pain, Denies palpitations and Denies dyspnea Resp Denies chest congestion, Denies cough and Denies dyspnea GI Denies abdominal pain, Denies constipation, Denies dysphagia, Denies heartburn, Denies diarrhea, Denies nausea, Denies odynophagia and Denies vomiting Denies difficulty voiding, Denies nocturia, Denies dysuria and Denies urinary urgency Musc Denies back pain, Reports arthralgias (on and off, in the right knee), Denies joint swelling and Denies neck pain Skin/Breast Denies rash Neuro Denies dizziness, Denies headache(s) and Reports memory loss (recent) Psych Reports memory loss (recent) Endo Denies fatigue and Denies palpitations Physical exam (Primary Care) Vital Signs: Last Vital Signs Pulse 76 01/22/25 14:17 BP 138/66 01/22/25 14:17 Pulse Ox 97 01/22/25 14:17 Oxygen Delivery Method Room Air 01/22/25 14:17 BMI result Body Mass Index 26.5 Tobacco/Smoking Status: Tobacco use Status Tobacco use date assessed 01/22/25 01/22/25 14:27 Patient Tobacco Use Status Never used Tobacco 01/22/25 14:27 e-Cigarette/Vaping Use Never Used 01/22/25 14:27 PHQ-9: PHQ-9 Score PHQ-9: Total score 0 01/22/25 14:46 Depression Screening Interpretation: Negative Thrive Assessment: Date of Thrive Assessment Date Thrive assessed 01/22/25 01/22/25 14:27 Currently or been in a relationship where the following occur: No concerns reported Const General: no acute distress and alert HENMT Ears: TM's normal bilaterally and EAC's normal Throat: Yes posterior oropharynx normal and Yes tonsils normal (no TP congestion) Neck Neck: Yes no lymphadenopathy, Yes supple and Yes no JVD Thyroid: Thyroid normal Resp Auscultation: clear to auscultation bilaterally, no rales and no wheezes Cardio Rate: regular rate Rhythm: regular rhythm Heart sounds: no murmurs GI Palpation (GI): Soft to palpation and nontender Auscultation: normal bowel sounds General: Yes no CVA tenderness Back/Spine/Pelvis Back: no CVA tenderness Thoracic/Lumbar Spine: No lumbar spinal tenderness Skin Rashes: no rashes Extrem General: Yes no clubbing, cyanosis or edema Results Reviewed Results Reviewed: Laboratory Tests 08/29/24 08/29/24 08:10 08:15 WBC 6.2 Hgb 14.0 Hct 41.5 Plt Count 198 Sodium 143 Potassium 3.7 Creatinine 0.79 Estimated GFR > 60 Fasting Glucose 110 H Calcium 9.7 AST 36 H ALT 38 H Triglycerides 83 Cholesterol 124 LDL Cholesterol, Calc 50 HDL Cholesterol 58 25-OH Vitamin D Total 49.4 TSH 2.16 Ur Specific [place] 1.015 Urine Protein Negative Urine Glucose (UA) Negative Urine Blood Trace H Urine Nitrite Negative Ur Leukocyte Esterase Small (1+) H Coding Level of Care Code Est Pt Level 4 (71943) Diagnoses ST elevation myocardial infarction (STEMI) of anterior wall I21.09 Ischemic cardiomyopathy I25.5 Presence of Watchman left atrial appendage closure device Z95.818 PAF (paroxysmal atrial fibrillation) I48.0 Subdural hemorrhage I62.00 Memory impairment R41.3 Essential hypertension I10 Primary osteoarthritis of right knee M17.11 Osteopenia, unspecified location M85.80 Osteopenia location: unspecified Anxiety F41.9 Overweight (BMI 25.0-29.9) E66.3 Additional Codes MAXIMILIAN-7 Assessment Billing - MAXIMILIAN-7 Assessment Tool: MAXIMILIAN-7 Assessment 89083 ([id number]) PHQ-9 - 01137 - PHQ-9 Billing: Yes ([id number]) Assessment & Plan Assessment & Plan (1) ST elevation myocardial infarction (STEMI) of anterior wall: Comment: S/P CHERYL to LAD in 11/2020 Code(s): I21.09 - ST elevation (STEMI) myocardial infarction involving other coronary artery of anterior wall Category: Medical Plan: Her cholesterol numbers were at goal on her most recent labs done in August 09 - total cholesterol was at 124 mg/dl and LDL cholesterol was at 50 mg/dl Continue Atorvastatin 80 mg QD for aggressive risk factor modification Continue lifelong antiplatelet therapy with Aspirin 81 mg QD Follow up with cardiology as scheduled Will have her recheck her labs and fasting lipids in 4 months for follow up (2) Ischemic cardiomyopathy: Code(s): I25.5 - Ischemic cardiomyopathy Category: Medical Plan: Previous echocardiogram showed EF of 25 to 30% with some wall motion abnormalities in the LAD territory Repeat echo done at [facility] in 08/2021 showed (+) improvement, with NORMAL LV systolic function and EF = 67% Continue Metoprolol ER 25 mg QD She was on low dose (20 mg) Furosemide daily for her pedal edema and SOB in the past but has not taken this in a while now States that her symptoms have improved significantly since she had her Watchman device inserted back in 12/2021 (3) Presence of Watchman left atrial appendage closure device: Comment: performed in December 2021 Code(s): Z95.818 - Presence of other cardiac implants and grafts Category: Medical Plan: (+) successful occlusion of the left atrial appendage with a 24 mm Watchman FLX device in December 2021 Continue Aspirin 81 mg QD - will need to continue on low dose Aspirin lifetime (4) PAF (paroxysmal atrial fibrillation): Code(s): I48.0 - Paroxysmal atrial fibrillation Category: Medical Plan: She was on Xarelto 20 mg QD (for thromboembolism prophylaxis) in addition to her Clopidogrel when she developed brain hemorrhage in 06/2021, requiring emergent craniotomy and drainage as well as infusion of Prothrombin complex concentrate and Tranexamic Acid Xarelto was stopped and patient was continued on Clopidogrel and Aspirin; Clopidogrel was discontinued in mid-June 2022 as planned 6 months following her Watchman device placement Continue Metoprolol ER 25 mg QD Follow up with cardiology as scheduled (5) Subdural hemorrhage: Code(s): I62.00 - Nontraumatic subdural hemorrhage, unspecified Category: Medical Plan: Patient has no residual neurologic deficits except for minimal right upper extremity weakness Still reports feeling weak and gets tired easily at times but is able to walk and ambulate on her own; states that she is also independent with most ADLs Neurosurgery recommends no routine follow up; only PRN (6) Memory impairment: Code(s): R41.3 - Other amnesia Category: Medical Plan: She has been referred to and was seen by neurology last year in July 2023 Was diagnosed with MCI and was sent for repeat head CT (done in August 2023) which revealed (+) diffuse volume loss and chronic microvascular ischemic changes and lacunar infarcts as well as sequela of a left temporofrontal craniotomy Vitamin B12 level was normal (7) Essential hypertension: Code(s): I10 - Essential (primary) hypertension Category: Medical Plan: Reinforced low sodium diet - goal is systolic BP of at least 130 to 140 mm or less States that her BP readings at home are mostly normal and that her blood pressure seems to go up whenever she comes into the office BP was 132/84 today Continue Amlodipine 5 mg QD, Metoprolol ER 25 mg QD and Losartan 100 mg QD (8) Primary osteoarthritis of right knee: Code(s): M17.11 - Unilateral primary osteoarthritis, right knee Category: Medical Plan: Right knee x-rays done last year in November 2023 revealed (+) moderate degenerative changes of the knee Patient states that she has mostly been able to manage her knee pain and still does not need anything for it right now Follow up with orthopedics as scheduled (9) Osteopenia: Code(s): M85.80 - Other specified disorders of bone density and structure, unspecified site Category: Medical Qualifiers: Osteopenia location: unspecified Qualified Code(s): M85.80 - Other specified disorders of bone density and structure, unspecified site Plan: Her BMD done back in October 2022 revealed (+) osteopenia based on the lowest T- score value of -2.2 in the femoral neck This serves as her baseline exam as there are no other BMDs available in her chart for review Reinforced fall precautions and she is advised to continue taking her oral Vitamin D and Calcium supplements daily (10) Anxiety: Code(s): F41.9 - Anxiety disorder, unspecified Category: Medical Plan: Continue Lorazepam 1 mg QD PRN She was previously started on Sertraline 25 mg Q AM a few months ago but patient did not continue on the Rx - prefers not to take anything else for now (11) Overweight (BMI 25.0-29.9): Code(s): E66.3 - Overweight Category: Medical Plan: Reinforced diet/exercise as tolerated/lose weight although she is having trouble walking lately due to her right knee issues and unsteady gait Plan Follow up in 4 months Orders: Orders Complete Blood Count Auto Diff 4 Months D64.9 - Anemia, unspecified Comprehensive [place]. Panel Fast 4 Months E78.00 - Pure hypercholesterolemia, unspecified Lipid Panel 4 Months E78.00 - Pure hypercholesterolemia, unspecified TSH reflex Free T4 4 Months E78.00 - Pure hypercholesterolemia, unspecified UA CC w/rflx Micro + Cult 4 Months R30.0 - Dysuria Vitamin D 25-OH Total 4 Months E55.9 - Vitamin D deficiency, unspecified Vitamin B12 and Folate 4 Months E53.8 - Deficiency of other specified B group vitamins
--- OUTSIDE RECORDS SUMMARY | 2025-01-22 14:18 | XMS_ITS | Clinical Summary ---
Author Organization [facility] Address [address] [place] [address] Phone Care Team Providers Care Confectionery Maker Name Role Phone Jay Vasquez MD Primary Care Provider Un available Allergies Active Allergy Reactions Criticality Noted Date Comments Lisinopril Cough 12/11/2005 Valsartan Diarrhea 12/30/2020 Medications aspirin 81 MG EC tablet Take 81 mg by mouth. 12/14/2021 Active atorvastatin (LIPITOR) 80 MG tablet 01/08/2023 Active losartan (COZAAR) 50 MG tablet 01/24/2023 Active metoprolol succinate (TOPROL-XL) 25 MG 24 hr tablet 01/24/2023 Act heidy amLODIPine (NORVASC) 5 MG tablet 02/18/2023 Active LORazepam (ATIVAN) 1 MG tablet 02/25/2023 Active Social History Tobacco Use Types Packs/Day Years Used Date Smoking Tobacco: Never Assessed Education Answer Date Recorded Are you interested in more education? Not on fahad e 01/24/2023 Are you concerned about learning? Not on file 01/24/2023 No 01/24/2023 No 01/24/2023 Digital Access Answer Date Recorded No 01/24/2023 No 01/24/2023 Reliable internet access at home? Not on file 01/24/2023 Device with a working camera? Not on file Comments Unknown Sex and Gender Information Value Date Recorded Sex Assigned at Female 02/04/2023 7:51 PM EDT Legal Sex Female 4:25 PM EDT Gender Identity Female 02/04/2023 7:51 PM EDT Sexual Orientation Not on file Last Filed Vital Signs Vital Sign Reading Time Taken Comments Blood Pressure - - Pulse - - Temperature - - Respiratory Rate - - Oxygen Saturation - - Inhaled Oxygen Concentration - - Weight 72.6 kg (160 lb) 02/14/2023 5:41 PM EDT Height 165.1 cm (5' 5 ) 02/14/2023 5:41 PM EDT Body Mass Index 26.63 02/14/2023 5:41 PM EDT Plan of Treatment Health Maintenance Due Date Last Done Comments CREATININE LEVEL 1946 LIPID PANEL 1946 POTASSIUM LEVEL 1946 DEPRESSION SCREENING 1958 SMOKING Hx and SMOKELESS TOBACCO SCREENING 09/10/1959 HEPATITIS C SCREENING 1964 ZOSTER VACCINES (2 of 3) 11/17/2009 09/22/2009 OSTEOPOROSIS SCREENING INITI AL (ONE-TIME) 09/10/2011 RSV VACCINE (1 - 1-dose 75+ series) 2021 COVID-19 VACCINE (4 - 2023-2 5 season) 2024 06/22/2021, 10/01/2020, 09/03/2020 Adult Td,Tdap Booster 01/01/2029 01/01/2019 , 02/10/2008 PNEUMOCOCCAL VACCINES (50+ years) Completed 10/29/2014, 09/19/2011 HEPATITIS A VACCINES Aged Out No long er eligible based on patient's age to complete this topic HIB VACCINES Aged Out No longer eligi ble based on patient's age to complete this topic MENINGOCOCCAL VACCINES (ACWY) Aged Out No longer eligible based on patient's age to complete this topic MENINGOCOCCAL VACCINES (B) Aged Out N o longer eligible based on patient's age to complete this topic Medical Devices Not on file Insurance MEDICARE PART A & B [employer] MEDEX SUPPLEMENT MEDICARE PART A & B [employer] MEDEX SUPPLEMENT MEDICARE PART A & B [employer] MEDEX SUPPLEMENT MEDICARE PART A & B [employer] MEDEX SUPPLEMENT MEDICARE PART A & B [employer] MEDEX SUPPLEMENT MEDICARE PART A & B [employer] MEDEX SUPPLEMENT Care Teams Confectionery Maker Relationship Specialty Start Date End Date Jay Vasquez MD PCP - General Internal Medicine 01/24/23 Additional Source Comments The information contained in this document represents components of the legal health record. It is not the complete legal health record.[facility]
--- OUTSIDE RECORDS SUMMARY | 2025-01-22 14:18 | XMS_ITS | Patient Health Record ---
Author Organization [facility] Address [address] [place] [address] Care Team Providers Care Green Inspector Name Role Phone Helio Sierra MD Primary Care Provider Mirza russell Modesto Avilezen Unavailable [phone] Reason For Referral No Information Medications Medication SIG (Take, Route, Frequency, Duration) Notes Start Date End Date Status hydroCHLOROthiazide Active Amlodipine & Diet Manage Prod Active Problems Problem Type SNOMED Code ICD Code Onset Dates Problem Status W/U Status Risk Notes Problem Acquired hallux valgus (30483931) Hallux valgus (acquired), right foot (M20.11) Active confirmed Plan Of Treatment No Information Insurance Providers Payer Name Payer Address Payer Phone Subscriber Number Group Number Insured Name Patient Relationship to Insured Coverage Start Date Coverage End Date Medicare National Govt Sv[employer] [address] [place] [phone] [id number] Cathryn Pa Self - patient is the insured [employer] [address] [place] [address] [phone] [id number] Cathryn Pa Self - patient is the insured Medical (General) History Medical History History ICD Code Back,Hip,and Knee pain Eczema Chicken pox Mumps
== END 2025-01-22 14:57 | disposition home or self-care (01) ==
LOC: HO.HMCH 14:16
PROVIDERS: PCP Internal Medicine; Visit Provider Internal Medicine
DX: I25.2 Old myocardial infarction (principal); I48.0 Paroxysmal atrial fibrillation; I62.00 Nontraumatic subdural hemorrhage, unspecified; Z68.26 Body mass index [BMI] 26.0-26.9, adult; E66.3 Overweight; I25.5 Ischemic cardiomyopathy; Z95.818 Presence of other cardiac implants and grafts; R41.3 Other amnesia; I10 Essential (primary) hypertension; M17.11 Unilateral primary osteoarthritis, right knee; M85.80 Other specified disorders of bone density and structure, unspecified site; F41.9 Anxiety disorder, unspecified

== ENCOUNTER → 2025-01-22 14:16 | Outpatient (BNVA) | payer MEDICARE, SELFPAY | PROVIDERS: PCP Internal Medicine; Visit Provider Internal Medicine | DX: I21.09 ST elevation (STEMI) myocardial infarction involving other coronary artery of anterior wall (principal); I25.5 Ischemic cardiomyopathy; Z95.818 Presence of other cardiac implants and grafts; I48.0 Paroxysmal atrial fibrillation; I62.00 Nontraumatic subdural hemorrhage, unspecified; R41.3 Other amnesia; I10 Essential (primary) hypertension; M17.11 Unilateral primary osteoarthritis, right knee; M85.80 Other specified disorders of bone density and structure, unspecified site; F41.9 Anxiety disorder, unspecified; E66.3 Overweight; Z68.26 Body mass index [BMI] 26.0-26.9, adult; Z71.3 Dietary counseling and surveillance | CPT/HCPCS: 96127; 99212 ==

== ENCOUNTER 2025-02-19 14:04 | Outpatient (REF) | payer MEDICARE, SELFPAY | END 2025-02-19 14:05 | disposition home or self-care (01) | LOC: HO.LNP 14:04 | PROVIDERS: PCP Internal Medicine; Visit Provider Internal Medicine | DX: N30.01 Acute cystitis with hematuria (principal); Z79.82 Long term (current) use of aspirin; R30.0 Dysuria | CPT/HCPCS: 81003; 87086; 87088; 87186; 99212 ==

== ENCOUNTER 2025-02-19 14:04 | Outpatient (AMB) | payer MEDICARE, SELFPAY ==
--- OUTSIDE RECORDS SUMMARY | 2025-02-19 14:05 | XMS_ITS | Patient Health Record ---
Author Organization [facility] Address [address] [place] [address] Care Team Providers Care Production Recorder Name Role Phone Helio Sierra MD Primary Care Provider Mirza russell Modesto Avilezen Unavailable [phone] Reason For Referral No Information Medications Medication SIG (Take, Route, Frequency, Duration) Notes Start Date End Date Status hydroCHLOROthiazide Active Amlodipine & Diet Manage Prod Active Problems Problem Type SNOMED Code ICD Code Onset Dates Problem Status W/U Status Risk Notes Problem Acquired hallux valgus (15137787) Hallux valgus (acquired), right foot (M20.11) Active confirmed Plan Of Treatment No Information Insurance Providers Payer Name Payer Address Payer Phone Subscriber Number Group Number Insured Name Patient Relationship to Insured Coverage Start Date Coverage End Date Medicare National Govt Svcs Inc [address] [facility] [place] [phone] [id number] Cathryn Pa Self - patient is the insured [employer] [address] [place] [address] [id number] Cathryn Pa Self - patient is the insured Medical (General) History Medical History History ICD Code Back,Hip,and Knee pain Eczema Chicken pox Mumps
--- OUTSIDE RECORDS SUMMARY | 2025-02-19 14:05 | XMS_ITS | Clinical Summary ---
Author Organization [facility] Address [address] [place] [address] [place] [address] Phone Care Team Providers Care Seat Cover Installer Name Role Phone Jay Vasquez MD Primary Care Provider [phone] Allergies Active Allergy Reactions Criticality Noted Date [...] file Insurance MEDICARE PART A & B [facility] CROSS MEDEX SUPPLEMENT MEDICARE PART A & B [employer] MEDEX SUPPLEMENT MEDICARE PART A & B [employer] MEDEX SUPPLEMENT MEDICARE PART A & B [employer] MEDEX SUPPLEMENT MEDICARE PART A & B [employer] MEDEX SUPPLEMENT MEDICARE PART A & B [employer] MEDEX SUPPLEMENT Care Teams Seat Cover Installer Relationship Specialty Start Date End Date Jay Vasquez MD [address] [place] [address] [address] [place], [place] [id number] PCP - General Internal Medicine 01/24/23 Additional Source Comments The information contained in this document represents components of the legal health record. It is not the complete legal health record.[facility]
--- OUTSIDE RECORDS SUMMARY | 2025-02-19 14:05 | XMS_ITS ---
Author Name [facility] Organization Unknown Care Team Organization Name Specialty Phone Email Start Date End Da te [facility] Gregoria Ortega Primary Care 05/15/2022 02/24/2024
[2025-02-19 14:16] VITALS: BP 124/58; PULSE 63; TEMP 36.5; O2SAT 96; BMI 26.6
--- NOTE | 2025-02-19 14:16 | AM.OFFWIN_ITS ---
Intake Vital Signs 02/19/25 14:16 Height 5 ft 5 in Weight 160 lb BMI 26.6 BP 124/58 L Blood Pressure Location Lt brachial Position Sitting Pulse 63 Pulse Source Pulse Oximeter Temp 97.7 F Temp Source Oral Pulse Oximetry (%) 96 Oxygen Delivery Method Room Air Intake Visit Reasons: EP UTI? Intake Note: pt presents with burning with peeing, low abdominal pressure Patient Tobacco Use Status: Never used Tobacco Allergies lisinopril (From ZESTRIL) Adverse Reaction (Intermediate, Verified 02/19/25 14:28) COUGH Medication List - Last Reconciled 02/19/25 by Derrick Carbajal MD amlodipine 5 mg PO DAILY 90 days aspirin 81 mg PO DAILY atorvastatin 80 mg PO DAILY donepezil 5 mg PO BEDTIME lorazepam 1 mg PO DAILY PRN 30 days losartan 100 mg (2 x 50 mg) PO DAILY metoprolol succinate ER 25 mg PO BEDTIME multivitamin 1 tab PO DAILY Do you need a note to return to daycare/school/sports/work: No HPI EP UTI? 2 HPI Details Chief Complaint The patient complains of increased urinary frequency and the presence of blood in the urine. History of Present Illness The patient is a 79-year-old female presenting with symptoms of a urinary tract infection. Urinary Tract Infection: - The patient reports symptoms that bega n today, including swelling sensation and increased frequency of urination. - She mentions that the need to urinate started approximately an hour before the consultation. - Denies any prior similar episodes exce pt a bladder infection approximately a year ago. - Has no relevant pain in the kidney are a upon physical examination as per her report. Medical History: - History of a bladder infection approxi mately a year ago. Medications: - Patient reports an allergy to lisinopr il, causes cough. Problem List - Urinary Tract Infection - Hematuria Patient Instructions - Start taking the prescribed antibiotic s as soon as they are picked up. - Monitor symptoms, and follow up if sym ptoms worsen or do not improve. Review of Systems - General: No fever no chills - Neurological: No headaches no dizziness - Ear nose throat: No sore throat no hearing difficulty no ear pain - Cardiovascular: No syncope, no chest pain, no palpitations - Gastrointestinal: No nausea vomiting or diarrhea Physical Exam General: No acute distress HEENT: No acute findings Neck: Supple Respiratory system: Able to talk in full sentences, no audible wheeze Back : No CVAT Gastrointestinal: Discomfort present suprapubic with pressure Extremities: No new findings SENIOR RELIABILITY ENGINEER: Alert awake oriented x3 motor sensory intact Skin: Normal turgor [facility] Medical History Primary osteoarthritis of right knee Overweight (BMI 25.0-29.9) Osteopenia Presence of Watchman left atrial appendage closure device Anxiety Benign essential hypertension Status post insertion of drug-eluting stent into left anterior descending (LAD) artery (~11/29/20) ST elevation myocardial infarction (STEMI) of anterior wall Subdural hemorrhage 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 Essential hypertension PAF (paroxysmal atrial fibrillation) Surgical History S/P craniotomy (~06/2021) History of cardiac catheterization (~11/29/20) History of total left knee replacement (~2018) Family History Father Myocardial infarction Mother HTN (hypertension) Social History Housing: House Alcohol intake: current Alcohol intake frequency: holidays/special occasions only Patient Tobacco Use Status: Never used Tobacco e-Cigarette/Vaping Use: Never Used Second Hand Smoke Exposure: No service: No Current occupational status: retired Current occupational exposures/hazards: No Cognitive needs: No Hearing needs: Yes Vision needs: Yes Physical Exam Vital Signs: Last Vital Signs Temp 97.7 F 02/19/25 14:16 Pulse 63 02/19/25 14:16 BP 124/58 L 02/19/25 14:16 Pulse Ox 96 02/19/25 14:16 Oxygen Delivery Method Room Air 02/19/25 14:16 BMI result Body Mass Index 26.6 Assessment & Plan Assessment & Plan (1) Acute cystitis with hematuria: Code(s): N30.01 - Acute cystitis with hematuria Plan Chief Complaint The patient complains of increased urinary frequency and the presence of blood in the urine. History of Present Illness The patient is a 79-year-old female presenting with symptoms of a urinary tract infection. Urinary Tract Infection: - The patient reports symptoms that began today, including swelling sensation and increased frequency of urination. - She mentions that the need to urinate started approximately an hour before the consultation. - Denies any prior similar episodes except a bladder infection approximately a year ago. - Has no relevant pain in the kidney area upon physical examination as per her report. Medical History: - History of a bladder infection approximately a year ago. Medications: - Patient reports an allergy to lisinopril, causes cough. Problem List - Urinary Tract Infection - Hematuria Patient Instructions - Start taking the prescribed antibiotics as soon as they are picked up. - Monitor symptoms, and follow up if symptoms worsen or do not improve. Orders: Orders Urine Culture Today N30.01 - Acute cystitis with hematuria Medications: New nitrofurantoin monohyd/m-cryst 100 mg (Macrobid) must administer with a meal/food 100 mg PO Q12H 10 caps 0RF 5 days Coding Level of Care Code Est Pt Level 3 (76771) Diagnoses Acute cystitis with hematuria N30.01
== END 2025-02-19 14:42 | disposition home or self-care (01) ==
PROVIDERS: PCP Internal Medicine; Visit Provider Internal Medicine
DX: N30.01 Acute cystitis with hematuria (principal); Z13.9 Encounter for screening, unspecified

== ENCOUNTER 2025-05-12 09:34 | Outpatient (AMB) | payer MEDICARE, SELFPAY ==
[2025-05-12 09:39] VITALS: BP 118/60; PULSE 71; TEMP 36.9; O2SAT 97; BMI 26.6
--- NOTE | 2025-05-12 09:39 | MHC.OFFWIV ---
Intake Vital Signs 05/12/25 09:39 Height 5 ft 5 in Weight 160 lb BMI 26.6 BP 118/60 Blood Pressure Location Lt brachial Position Sitting Pulse 71 Pulse Source Pulse Oximeter Temp 98.4 F Temp Source Oral Pulse Oximetry (%) 97 Oxygen Delivery Method Room Air Intake Visit Reasons: EP Possible mouth infection Intake Note: pt presents with oral swelling, burning sensation, dry mouth and very uncomfortable for a few days Patient Tobacco Use Status: Never used Tobacco Allergies lisinopril (From ZESTRIL) Adverse Reaction (Intermediate, Verified 05/12/25 09:41) COUGH Do you need a note to return to daycare/school/sports/work: No HPI HPI Comments History of Present Illness Details History of Present Illness - The patient is a 79-year-old female presenting with oral mucosal inflammation and canker sores. - The oral mucosal inflammation began on Saturday and has progressively worsened, affecting both the gums and lips. - The patient reports the presence of canker sores under the tongue and upper lip, which have become swollen and painful. - There is no associated sore throat, and the patient denies any recent dietary changes or new food intake. - The patient has been using mouthwash and saltwater rinses, which may have exacerbated the irritation. - The patient is not diabetic and has no known immunocompromised conditions. - She denies recent cold, dental pain, cough, ear pain, congestion, MENDES, CP, or SOB. - She is not a smoker. - She has no dental pain. Physical Exam General: Cooperative, healthy appearing, comfortable, no acute distress and well developed Head: Normal to inspection Face and sinus: Swelling noted on the left lower face along the jawline. Mouth/Throat: No halitosis noted. Tongue is normal and midline. Uvula is midline. Oropharynx is pink with no exudates noted. Tonsils not swollen. Dental caries noted. Gingiva is pink, erythematous and not swollen. Ulcer noted under the tongue and on the gums of the upper lip. Neck: Normal visual inspection and full ROM. No lymphadenopathy noted. Respiratory: Normal respiratory effort and able to speak in complete sentences. Clear to auscultation bilaterally Cardiovascular: Regular rate and rhythm. 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 Essential hypertension PAF (paroxysmal atrial fibrillation) Surgical History S/P craniotomy (~06/2021) History of cardiac catheterization (~11/29/20) History of total left knee replacement (~2018) Family History Father Myocardial infarction Mother HTN (hypertension) Social History Housing: House Alcohol intake: current Alcohol intake frequency: holidays/special occasions only Patient Tobacco Use Status: Never used Tobacco e-Cigarette/Vaping Use: Never Used Second Hand Smoke Exposure: No service: No Current occupational status: retired Current occupational exposures/hazards: No Cognitive needs: No Hearing needs: Yes Vision needs: Yes Review of Systems Const All systems reviewed & are unremarkable except as noted in HPI and below Physical Exam Vital Signs: Last Vital Signs Temp 98.4 F 05/12/25 09:39 Pulse 71 05/12/25 09:39 BP 118/60 05/12/25 09:39 Pulse Ox 97 05/12/25 09:39 Oxygen Delivery Method Room Air 05/12/25 09:39 BMI result Body Mass Index 26.6 Assessment & Plan Assessment & Plan (1) Mouth pain: Code(s): K13.79 - Other lesions of oral mucosa Plan Most likely gingivitis vs oral ulcers Plan - diet as tolerated - tylenol or motrin as needed - augmentin BID for a week - lidocaine as needed for pain - follow up with the dentist Medications: New lidocaine HCl 1 appl mucous membrane BID PRN 50 mL 0RF pain amoxicillin-pot clavulanate 875-125 mg 1 tab PO Q12H 14 tabs 0RF Coding Level of Care Code Est Pt Level 3 (55533) Diagnoses Mouth pain K13.79
--- OUTSIDE RECORDS SUMMARY | 2025-05-12 10:42 | XMS_ITS | Encounter Summary ---
Author Organization [facility] Address [address] [facility] [address] [place] [address] Phone Care Team Providers Care Stone Mason Name Role Phone Jay Vasquez MD Primary Care Provider [phone] Encounter Details Date Type Department Care Team (Late st Contact Info) Description 02/05/2023 Procedure Pass [address] [place] [id number] Social History Tobacco Use Types Packs/Day Years [...] PM EDT Sexual Orientation Not on file documented as of this encounter Plan of Treatment Not on file documented as of this encounter Visit Diagnoses Not on filedocumented in this encounter Care Teams Stone Mason Relationship Specialty Start Date End Date Jay Vasquez MD [address] [place] [address] [place] [address] PCP - General Internal Medicine 01/24/23 documented as of this encounter Additional Source Comments The information contained in this document represents components of the legal health record. It is not the complete legal health record.[facility]
--- OUTSIDE RECORDS SUMMARY | 2025-05-12 10:43 | XMS_ITS | Clinical Summary ---
Author Organization [facility] Address [facility] [address] [place] [phone] Phone Care Team Providers Care Stonework Tracer Name Role Phone Jay Vasquez MD Primary Care Provider [phone] Allergies Active Allergy Reactions Criticality Noted Date [...] (2 of 3) 11/17/2009 09/22/2009 OSTEOPOROSIS SCREENING INITIAL (ONE-TIME) 09/10/2011 RSV VACCINE (1 - 1-dose 75+ series) 2021 INFLUENZA VACCINE (#1) 2025 , 04/07/2019, 03/13/2018, Additional history exists COVID-19 VACCINE ( season) 2025 06/22/2021, 10/01/2020, 09/03/2020 Adult Td,Tdap Booster 01/01/2029 01/01/2019, 008 PNEUMOCOCCAL VACCINES (50+ years) Completed 10/29/2014, 09/19/2011 [...] file Insurance MEDICARE PART A & B [employer] SUPPLEMENT MEDICARE PART A & B [employer] SUPPLEMENT MEDICARE PART A & B [employer] SUPPLEMENT MEDICARE PART A & B [employer] SUPPLEMENT MEDICARE PART A & B [facility] MEDEX SUPPLEMENT MEDICARE PART A & B [employer] MEDEX SUPPLEMENT Care Teams Stonework Tracer Relationship Specialty Start Date End Date Jay Vasquez MD [address] [place] [address] [place] [address] PCP - General Internal Medicine 01/24/23 Additional Source Comments The information contained in this document represents components of the legal health record. It is not the complete legal health record.[facility]
--- OUTSIDE RECORDS SUMMARY | 2025-05-12 10:43 | XMS_ITS | Patient Health Record ---
Author Organization [facility] Address [address] [place] [address] Care Team Providers Care Enrober Name Role Phone Helio Sierra MD Primary Care Provider Mirza russell Modesto Avilezen Unavailable [phone] Reason For Referral No Information Medications Medication SIG (Take, Route, Frequency, Duration) Notes Start Date End Date Status hydroCHLOROthiazide Active Amlodipine & Diet Manage Prod Active Problems Problem Type SNOMED Code ICD Code Onset Dates Problem Status W/U Status Risk Notes Problem Acquired hallux valgus (53372384) Hallux valgus (acquired), right foot (M20.11) Active confirmed Plan Of Treatment No Information Insurance Providers Payer Name Payer Address Payer Phone Subscriber Number Group Number Insured Name Patient Relationship to Insured Coverage Start Date Coverage End Date Medicare National [employer] [address] [facility] [id number] Cathryn Pa Self - patient is the insured [employer] [address] [place] [address] [phone] [id number] Cathryn Pa Self - patient is the insured Medical (General) History Medical History History ICD Code Back,Hip,and Knee pain Eczema Chicken pox Mumps
== END 2025-05-12 10:25 | disposition home or self-care (01) ==
PROVIDERS: PCP Internal Medicine; Visit Provider Physician Assistant Medical
DX: K13.79 Other lesions of oral mucosa (principal)

== ENCOUNTER → 2025-05-12 09:34 | Outpatient (BNVA) | payer MEDICARE, SELFPAY | PROVIDERS: PCP Internal Medicine; Visit Provider Physician Assistant Medical | DX: K13.79 Other lesions of oral mucosa (principal) | CPT/HCPCS: 99212 ==

== ENCOUNTER 2025-05-27 11:53 | Outpatient (AMB) | payer MEDICARE, SELFPAY ==
[2025-05-27 11:56] VITALS: BP 134/78; PULSE 69; O2SAT 98; BMI 26.2
--- NOTE | 2025-05-27 11:56 | MHC.PC.OV ---
Vital Signs 05/27/25 11:56 Height 5 ft 5 in Weight 157 lb 6 oz BMI 26.2 BP 134/78 Blood Pressure Location Lt brachial Position Sitting Pulse 69 Pulse Source Pulse Oximeter Pulse Oximetry (%) 98 Oxygen Delivery Method Room Air Intake Visit Reasons: 4 month f/u Public Health Technologist Required: No Accompanied by: Self / Same As Patient Allergies lisinopril (From ZESTRIL) Adverse Reaction (Intermediate, Verified 05/27/25 12:18) COUGH Medication List - Last Reconciled 05/27/25 by Jay Vasquez MD amlodipine 5 mg PO DAILY 90 days aspirin 81 mg PO DAILY atorvastatin 80 mg PO DAILY donepezil 5 mg PO BEDTIME lidocaine HCl 1 appl mucous membrane BID PRN lorazepam 1 mg PO DAILY PRN 30 days losartan 100 mg (2 x 50 mg) PO DAILY metoprolol succinate ER 25 mg PO BEDTIME multivitamin 1 tab PO DAILY Tobacco use date assessed: 05/27/25 Fall risk assessment: No Falls in past year Last assessed Fall Risk: 05/27/25 Dental Screening Dental Screen Date: 05/27/25 Did you have a dental visit in the last 12 months?: Yes Was dental information given to patient?: Patient has dentist HPI 4 month f/u HPI Details Patient comes in today for her follow up visit States that she feels okay She denies any headaches or dizziness Denies any chest pains, no SOB No nausea/vomiting, no abdominal pain No change in bowel habits noted States that she just needs her Lorazepam Rx refilled today She was again not able to get her follow up labs done prior to her appointment today - states that forgot to do them [facility] Medical History Primary osteoarthritis of right knee Overweight (BMI 25.0-29.9) Osteopenia Presence of Watchman left atrial appendage closure device Anxiety Benign essential hypertension Status post insertion of drug-eluting stent into left anterior descending (LAD) artery (~11/29/20) ST elevation myocardial infarction (STEMI) of anterior wall Subdural hemorrhage FCI (current) use of anticoagulants Essential hypertension PAF (paroxysmal atrial fibrillation) Surgical History S/P craniotomy (~06/2021) History of cardiac catheterization (~11/29/20) History of total left knee replacement (~2018) Family History Father Myocardial infarction Mother HTN (hypertension) Social History Housing: House Alcohol intake: current Alcohol intake frequency: holidays/special occasions only Patient Tobacco Use Status: Never used Tobacco e-Cigarette/Vaping Use: Never Used Second Hand Smoke Exposure: No service: No Current occupational status: retired Current occupational exposures/hazards: No Cognitive needs: No Hearing needs: Yes Vision needs: Yes Questionnaire PHQ-9 Over the last 2 weeks, how often have you been bothered by any of the following problems? 1. Little interest or pleasure in doing things: not at all 2. Feeling down, depressed, or hopeless: not at all 3. Trouble falling or staying asleep, or sleeping too much: not at all 4. Feeling tired or having little energy: not at all 5. Poor appetite or overeating: not at all 6. Feeling bad about yourself - or that you are a failure or have let yourself or your family down: not at all 7. Trouble concentrating on things, such as reading the newspaper or watching television: not at all 8. Moving or speaking so slowly that other people could have noticed. Or the opposite - being so fidgety or restless that you have been moving around a lot more than usual: not at all 9. Thoughts that you would be better off or of hurting yourself in some way: not at all Total score: 0 Depression Screening Interpretation: Negative Depression Screening Done: Yes 02444 - PHQ-9 Billing: Yes Source: Developed by Drs. Blaze Tariq, Concetta De Jesus, Ernesto Garber and colleagues, with an educational regla from [employer]. Thrive Questionnaire Date Thrive assessed: 05/27/25 I am a: Patient What is your living situation today?: I have a steady place to live Within the past 12 months, did the food you bought not last and you didn't have the money to get more?: Never true Within the past 12 months, did you worry whether your food would run out before you got money to buy more?: Never true Do you have trouble paying for medicines?: No Do you have trouble getting transportation to medical appointments?: No Do you have trouble paying your heating and electricity bill?: No Do you have trouble taking care of your child, family member or friend?: No Do you have trouble with day-to-day activities such as bathing, preparing meals, shopping, managing finances, etc.?: No Are you currently unemployed and looking for a job?: No Are you interested in more education?: No Please select the resources that you would like help with: None Currently or been in a relationship where the following occur: I choose not to answer THRIVE Score: 0 AUDIT C Alcohol Use Questionnaire (AUDIT-C) 1. How often do you have a drink containing alcohol?: Never 3. How often do you have six or more drinks on one occasion?: Never Total Score: 0 Score Reviewed/Action Taken: Yes MAXIMILIAN-7 AMB Questionnaire MAXIMILIAN-7 Date MAXIMILIAN - 7 assessed: 05/27/25 Feeling nervous, anxious, or on edge: 0 = Not at all Not being able to stop or control worryin = Not at all Worrying too much about different things: 0 = Not at all Trouble relaxin = Not at all Being so restless that it is hard to sit still: 0 = Not at all Becoming easily annoyed or irritable: 0 = Not at all Feeling afraid as if something awful might happen: 0 = Not at all Total MAXIMILIAN-7 score (0-4 normal; 5-9 mild; 10-14 moderate; 15-21 severe): 0 Source: Developed by Drs. Blaze Tariq, Concetta De Jesus, Ernesto Garber and colleagues, with an educational regla from [employer]. Review of Systems Const Denies difficulty sleeping, Denies fatigue, Denies fever(s) and Denies headache(s) ENT Denies dysphagia, Denies dizziness, Denies otalgia, Denies headache(s), Denies neck pain, Denies odynophagia and Denies sore throat Card Denies chest pain, Denies palpitations and Denies dyspnea Resp Denies chest congestion, Denies cough and Denies dyspnea GI Denies abdominal pain, Denies constipation, Denies dysphagia, Denies heartburn, Denies diarrhea, Denies nausea, Denies odynophagia and Denies vomiting Denies difficulty voiding, Denies nocturia, Denies dysuria and Denies urinary urgency Musc Denies back pain, Reports arthralgias (on and off, in the right knee), Denies joint swelling and Denies neck pain Skin/Breast Denies rash Neuro Denies dizziness and Denies headache(s) Endo Denies fatigue and Denies palpitations Physical exam (Primary Care) Vital Signs: Last Vital Signs Pulse 69 05/27/25 11:56 BP 134/78 05/27/25 11:56 Pulse Ox 98 05/27/25 11:56 Oxygen Delivery Method Room Air 05/27/25 11:56 BMI result Body Mass Index 26.2 Tobacco/Smoking Status: Tobacco use Status Tobacco use date assessed 05/27/25 05/27/25 12:00 Patient Tobacco Use Status Never used Tobacco 05/27/25 12:00 e-Cigarette/Vaping Use Never Used 05/27/25 12:00 PHQ-9: PHQ-9 Score PHQ-9: Total score 0 05/27/25 12:20 Depression Screening Interpretation: Negative Thrive Assessment: Date of Thrive Assessment Date Thrive assessed 05/27/25 05/27/25 12:00 Currently or been in a relationship where the following occur: I choose not to answer Const General: no acute distress and alert HENMT Ears: TM's normal bilaterally and EAC's normal Throat: Yes posterior oropharynx normal and Yes tonsils normal (no TP congestion) Neck Neck: Yes supple and No lymphadenopathy Thyroid: Thyroid normal Resp Auscultation: clear to auscultation bilaterally, no rales and no wheezes Cardio Rate: regular rate Rhythm: regular rhythm Heart sounds: no murmurs GI Palpation (GI): Soft to palpation and nontender Auscultation: normal bowel sounds General: Yes no CVA tenderness Back/Spine/Pelvis Back: no CVA tenderness Thoracic/Lumbar Spine: No lumbar spinal tenderness Skin Rashes: no rashes Extrem General: Yes no clubbing, cyanosis or edema Coding Level of Care Code Est Pt Level 4 (09642) Diagnoses ST elevation myocardial infarction (STEMI) of anterior wall I21.09 Ischemic cardiomyopathy I25.5 Presence of Watchman left atrial appendage closure device Z95.818 PAF (paroxysmal atrial fibrillation) I48.0 Subdural hemorrhage I62.00 Memory impairment R41.3 Essential hypertension I10 Primary osteoarthritis of right knee M17.11 Osteopenia, unspecified location M85.80 Osteopenia location: unspecified Anxiety F41.9 Overweight (BMI 25.0-29.9) E66.3 Additional Codes PHQ-9 - 82516 - PHQ-9 Billing: Yes ([id number]) Assessment & Plan Assessment & Plan (1) ST elevation myocardial infarction (STEMI) of anterior wall: Comment: S/P CHERYL to LAD in 11/2020 Code(s): I21.09 - ST elevation (STEMI) myocardial infarction involving other coronary artery of anterior wall Category: Medical Plan: Her cholesterol numbers were at goal on her most recent labs done in August 2024 - total cholesterol was at 124 mg/dl and LDL cholesterol was at 50 mg/dl Patient has not been able to get any follow up labs done since Continue Atorvastatin 80 mg QD for aggressive risk factor modification Continue lifelong antiplatelet therapy with Aspirin 81 mg QD Follow up with cardiology as scheduled As she has not had any follow up labs done in over 10 months now, will have her recheck her labs and fasting lipids NICK - her lab orders are printed out and handed to her and she is instructed to go and get these done as soon as she can (2) Ischemic cardiomyopathy: Code(s): I25.5 - Ischemic cardiomyopathy Category: Medical Plan: Her previous echocardiogram in 2020 revealed an EF of 25 to 30% with some wall motion abnormalities in the LAD territory [place] [facility] [place] showed (+) improvement, with NORMAL LV systolic function and EF = 67% Continue Metoprolol ER 25 mg QD She was on low dose (20 mg) Furosemide daily for her pedal edema and SOB in the past but has not taken this in a while now States that her symptoms have improved significantly since she had her Watchman device inserted back in 12/2021 (3) Presence of Watchman left atrial appendage closure device: Comment: performed in December 2021 Code(s): Z95.818 - Presence of other cardiac implants and grafts Category: Medical Plan: (+) successful occlusion of the left atrial appendage with a 24 mm Watchman FLX device in December 2021 Continue Aspirin 81 mg QD - will need to continue on low dose Aspirin for life (4) PAF (paroxysmal atrial fibrillation): Code(s): I48.0 - Paroxysmal atrial fibrillation Category: Medical Plan: She was on Xarelto 20 mg QD (for thromboembolism prophylaxis) in addition to her Clopidogrel when she developed a brain hemorrhage back in 06/2021, requiring emergent craniotomy and drainage as well as infusion of Prothrombin complex concentrate and Tranexamic Acid Xarelto was stopped and patient was continued on Clopidogrel and Aspirin; Clopidogrel was discontinued in mid-June 2022 as planned 6 months following her Watchman device placement Continue Metoprolol ER 25 mg QD Follow up with cardiology as scheduled (5) Subdural hemorrhage: Code(s): I62.00 - Nontraumatic subdural hemorrhage, unspecified Category: Medical Plan: Patient has no residual neurologic deficits except for minimal right upper extremity weakness Still reports feeling weak and gets tired easily at times but is able to walk and ambulate on her own; states that she is also independent with most ADLs Neurosurgery recommends no routine follow up - only PRN (6) Memory impairment: Code(s): R41.3 - Other amnesia Category: Medical Plan: She has been referred to and was seen by neurology last year in July 2023 She was diagnosed with MCI and was sent for repeat head CT (done in August 2023) which revealed (+) diffuse volume loss and chronic microvascular ischemic changes and lacunar infarcts as well as sequela of a left temporofrontal craniotomy Her Vitamin B12 level was normal (7) Essential hypertension: Code(s): I10 - Essential (primary) hypertension Category: Medical Plan: Reinforced low sodium diet - goal is systolic BP of at least 130 to 140 mm or less States that her BP readings at home are mostly normal and that her blood pressure seems to go up whenever she comes into the office BP was 134/78 today Continue Amlodipine 5 mg QD, Metoprolol ER 25 mg QD and Losartan 100 mg QD She is reminded to continue monitoring her blood pressure regularly (8) Primary osteoarthritis of right knee: Code(s): M17.11 - Unilateral primary osteoarthritis, right knee Category: Medical Plan: Right knee x-rays done last year in November 2023 revealed (+) moderate degenerative changes of the knee Patient states that she has mostly been able to manage her knee pain and still does not need anything for it right now Follow up with orthopedics as scheduled (9) Osteopenia: Code(s): M85.80 - Other specified disorders of bone density and structure, unspecified site Category: Medical Qualifiers: Osteopenia location: unspecified Qualified Code(s): M85.80 - Other specified disorders of bone density and structure, unspecified site Plan: Her BMD done back in October 2022 revealed (+) osteopenia based on the lowest T-score value of -2.2 in the femoral neck This serves as her baseline exam as there are no other BMDs available in her chart for review Reinforced fall precautions and she is advised to continue taking her oral Vitamin D and Calcium supplements daily (10) Anxiety: Code(s): F41.9 - Anxiety disorder, unspecified Category: Medical Plan: Continue Lorazepam 1 mg QD PRN - Rx refilled She was previously started on Sertraline 25 mg Q AM earlier this year but patient did not continue on the Rx - states that she prefers not to take any other medication at this time (11) Overweight (BMI 25.0-29.9): Code(s): E66.3 - Overweight Category: Medical Plan: Reinforced diet/exercise as tolerated/lose weight Plan Follow up in 4 months Medications: Refilled lorazepam 1 mg PO DAILY PRN 30 tabs 0RF anxiety 30 days
== END 2025-05-27 12:27 | disposition home or self-care (01) ==
LOC: HO.HMCH 11:54
PROVIDERS: PCP Internal Medicine; Visit Provider Internal Medicine
DX: I48.0 Paroxysmal atrial fibrillation (principal); I62.00 Nontraumatic subdural hemorrhage, unspecified; I25.2 Old myocardial infarction; I25.5 Ischemic cardiomyopathy; Z95.818 Presence of other cardiac implants and grafts; R41.3 Other amnesia; I10 Essential (primary) hypertension; M17.11 Unilateral primary osteoarthritis, right knee; M85.80 Other specified disorders of bone density and structure, unspecified site; F41.9 Anxiety disorder, unspecified; E66.3 Overweight

== ENCOUNTER → 2025-05-27 11:53 | Outpatient (BNVA) | payer MEDICARE, SELFPAY | PROVIDERS: PCP Internal Medicine; Visit Provider Internal Medicine | DX: I21.09 ST elevation (STEMI) myocardial infarction involving other coronary artery of anterior wall (principal); I25.5 Ischemic cardiomyopathy; I48.0 Paroxysmal atrial fibrillation; I62.00 Nontraumatic subdural hemorrhage, unspecified; R41.3 Other amnesia; I10 Essential (primary) hypertension; M17.11 Unilateral primary osteoarthritis, right knee; M85.80 Other specified disorders of bone density and structure, unspecified site; F41.9 Anxiety disorder, unspecified; E66.3 Overweight; Z68.26 Body mass index [BMI] 26.0-26.9, adult; Z95.818 Presence of other cardiac implants and grafts; Z71.3 Dietary counseling and surveillance | CPT/HCPCS: 96127; 99212 ==